=== PATIENT | female | born 1940 | race Two or more races ===

== ENCOUNTER 2017-03-21 07:48 | Emergency (ER) | payer MEDICARE, MEDICAID ==
[~2017-03-21] VITALS: Ht 152.4 cm; Wt 66.2 kg
--- NOTE | 2017-03-21 08:00 | NUR ---
AAOX3, BIB FAMILY C/O RL BACK RADIATES TO R [place] AREA, R THIGH AND ABDOMEN. DENIES N/V/D. RR IS EVEN AND UNLABORED WITH NAD NOTED. SKIN IS WARM AND DRY. AWAITING MD FOR EVAL.
[2017-03-21] MEDS ORDERED: ACETAMINOPHEN ES 500 MG TABLET ONE (08:12)
[2017-03-21] MEDS ORDERED: KETOROLAC TROMETHAMINE INJ 30 MG/ML VIAL ONE (08:12)
[2017-03-21] MEDS: KETOROLAC TROMETHAMINE INJ 60 MG/2 ML VIAL IM ONE (08:15)
[2017-03-21] MEDS: ACETAMINOPHEN ES 500 MG TABLET PO ONE (08:15)
[2017-03-21 09:13] LABS: APPEARANCE,URINE CLEAR (CLEAR); BILIRUBIN,URINE NEGATIVE (NEGATIVE); BLOOD, URINE NEGATIVE Ery/uL (NEGATIVE); COLOR,URINE YELLOW (YELLOW); KETONES,URINE NEGATIVE (NEGATIVE); LEUKOCYTE ESTERASE ,URINE NEGATIVE (NEGATIVE); NITRITE, URINE NEGATIVE (NEGATIVE); PROTEIN,URINE 1+ mg/dl (NEGATIVE); UGLUCOSE TRACE mg/dL (NEGATIVE); UROBILINOGEN,URINE 0.2 EU/dL (0.2)
--- NOTE | 2017-03-21 09:15 | NUR ---
PATIENT TRANSPORTED FOR XRAY VIA WHEELCHAIR.
[2017-03-21 09:16] LABS: RBC,URINE 0-2 /HPF (0-2)
[2017-03-21 09:17] LABS: BACTERIA,URINE Few /HPF (None Seen); MUCUS,URINE Few /LPF (None Seen); SQUAMOUS EPITHELIAL CELL,UR 0-2 /HPF (None Seen); URINE AMORPHOUS URATE Few /HPF (None Seen); WBC,URINE 0-2 /HPF (0-3)
--- NOTE | 2017-03-21 10:04 | NUR ---
Patient discharged to home in stable condition. Written and verbal after care instructions given. Patient verbalizes understanding of instruction.
[2017-03-21 10:06] VITALS: BP 142/85
== END 2017-03-21 10:30 | disposition home or self-care (01) ==
LOC: ER 07:51
DX: M54.5 Low back pain (principal); M51.16 Intervertebral disc disorders with radiculopathy, lumbar region; E11.9 Type 2 diabetes mellitus without complications; E78.00 Pure hypercholesterolemia, unspecified; I10 Essential (primary) hypertension; K21.9 Gastro-esophageal reflux disease without esophagitis
CPT/HCPCS: 72100; 81001; 87086; 96372; 99285; A4606; J1885; 81000-TC; Z7610

== ENCOUNTER 2017-06-30 10:43 | Outpatient (CLI) | payer MEDICARE, MEDICAID | END 2017-06-30 23:59 | disposition home or self-care (01) | LOC: RAD 10:43 | PROVIDERS: ATTEND Internal Medicine | DX: M79.641 Pain in right hand (principal) | CPT/HCPCS: 73130-TC ==

== ENCOUNTER 2018-04-12 14:10 | Outpatient (CLI) | payer MEDICARE, MEDICAID | END 2018-04-12 23:59 | disposition home or self-care (01) | LOC: RAD 14:10 | PROVIDERS: ATTEND Internal Medicine | DX: Z11.1 Encounter for screening for respiratory tuberculosis (principal); J98.11 Atelectasis; I70.0 Atherosclerosis of aorta; M47.815 Spondylosis without myelopathy or radiculopathy, thoracolumbar region | CPT/HCPCS: 71045-TC ==

== ENCOUNTER 2018-12-03 09:14 | Emergency (ER) | payer MEDICARE, OTHER ==
[~2018-12-03] VITALS: Ht 149.9 cm; Wt 64.4 kg
[2018-12-03] MEDS ORDERED: KETOROLAC TROMETHAMINE INJ 30 MG/ML VIAL ONE (09:51)
[2018-12-03] MEDS ORDERED: hydrALAZINE HCL IV 20 MG VIAL ONE (09:51)
[2018-12-03] MEDS ORDERED: ONDANSETRON HCL/PF 4 MG/2 ML VIAL ONE (09:52)
[2018-12-03] MEDS ORDERED: KETOROLAC TROMETHAMINE INJ 30 MG/ML VIAL IV ONE (10:00)
[2018-12-03] MEDS ORDERED: ONDANSETRON HCL/PF 4 MG/2 ML VIAL IV ONE (10:00)
[2018-12-03] MEDS ORDERED: hydrALAZINE HCL IV 20 MG VIAL IV ONE (10:00)
[2018-12-03 10:06] LABS: BASOPHILS # (AUTO) 0.1 /CMM (0.0-0.2); BASOPHILS % (AUTO) 1.3 % (0.0-2.0); EOSINOPHILS % (AUTO) 2.2 % (0.0-6.0); HEMATOCRIT 37 % (33-45); HEMOGLOBIN 11.9 g/dL (11.5-14.8); LYMPHOCYTES % (AUTO) 26.4 % (20.0-44.0); MEAN CORPUSCULAR HGB CONC 33 g/dl (31.0-36.0); MEAN CORPUSCULAR VOLUME 76 fL (82-100); MONOCYTES # (AUTO) 0.5 /CMM (0.1-1.30); MONOCYTES % (AUTO) 7.1 % (2.0-12.0); NEUTROPHILS # (AUTO) 4.7 /CMM (1.8-8.9); PLATELET COUNT (AUTO) 242 /CMM (150-450); RED BLOOD CELL COUNT(AUTO) 4.81 MIL/uL (4.0-5.2); WHITE BLOOD COUNT (AUTO) 7.4 K/uL (4.3-11.0)
[2018-12-03 10:14] LABS: CALCIUM, SERUM 9.2 mg/dL (8.5-10.1); CARBON DIOXIDE 28 mmol/L (21-32); CHLORIDE 102 mmol/L (98-107); CREATININE 0.7 mg/dL (0.6-1.3); GLUCOSE 343 mg/dL (74-106); POTASSIUM 3.4 mmol/L (3.5-5.1); SODIUM SERUM 138 mmol/L (136-145); UREA NITROGEN, BLOOD 12 mg/dL (7-18)
--- NOTE | 2018-12-03 10:15 | NUR ---
PT SINGAPOREAN SPEAKING, SON AT BEDSIDE, SINGAPOREAN INTERPRETATION. PT IN GOWN, PUT INTO MONITOR, PT MADE AWARE W PLAN OF CARE. WILL CONTINUE TO MONITOR
[2018-12-03 10:26] LABS: B-TYPE NATRIURETIC PEPTIDE 181 PG/ML (0-125)
[2018-12-03 10:46] VITALS: BP 154/83
--- NOTE | 2018-12-03 10:46 | NUR ---
IV removed. Catheter intact and site benign. Pressure and 4x4 applied to site. No bleeding noted.Patient discharged to home in stable condition. Written and verbal after care instructions given. Patient verbalizes understanding of instruction.
--- NOTE | 2018-12-03 10:47 | NUR ---
patient is stable and sent to waiting area. patient stated that she is waiting for her daughter to pick her up.
== END 2018-12-03 10:47 | disposition home or self-care (01) ==
LOC: ER 09:19
DX: R51 Headache (principal); I10 Essential (primary) hypertension; K21.9 Gastro-esophageal reflux disease without esophagitis; E11.9 Type 2 diabetes mellitus without complications; E78.00 Pure hypercholesterolemia, unspecified
CPT/HCPCS: 36415; 80048; 83880; 84484; 85025; 93005; 96374; 96375; 99284; J0360; J1885; J2405; J7030

== ENCOUNTER 2019-01-09 09:20 | Emergency (ER) | payer MEDICARE, OTHER ==
[~2019-01-09] VITALS: Ht 154.9 cm; Wt 70.3 kg
--- NOTE | 2019-01-09 09:36 | NUR ---
CAME IN FOR LOWER BACK PAIN R/T RLE. UNABLE TO GET OFF BED THIS AM. TO ER BED 11, HOOKED TO MONITOR, CHNAGED TO HOSPITAL GOWN, AWAITING MD CAO
--- NOTE | 2019-01-09 10:08 | NUR ---
DR SHEPARD AT BEDSIDE
[2019-01-09] MEDS ORDERED: MORPHINE SULFATE INJ 2 MG/ML DISP.SYRIN IV ONE (10:30)
[2019-01-09] MEDS ORDERED: MORPHINE SULFATE INJ 4 MG/ML DISP.SYRIN ONE (10:39)
[2019-01-09 10:56] LABS: BASOPHILS # (AUTO) 0.1 /CMM (0.0-0.2); BASOPHILS % (AUTO) 0.8 % (0.0-2.0); EOSINOPHILS % (AUTO) 1.1 % (0.0-6.0); HEMATOCRIT 36 % (33-45); HEMOGLOBIN 11.4 g/dL (11.5-14.8); LYMPHOCYTES # (AUTO) 1.4 /CMM (0.8-4.8); LYMPHOCYTES % (AUTO) 14.7 % (20.0-44.0); MEAN CORPUSCULAR HGB CONC 32 g/dl (31.0-36.0); MEAN CORPUSCULAR VOLUME 74 fL (82-100); MONOCYTES # (AUTO) 0.7 /CMM (0.1-1.30); NEUTROPHILS # (AUTO) 7.5 /CMM (1.8-8.9); NEUTROPHILS % (AUTO) 76.4 % (43.0-81.0); PLATELET COUNT (AUTO) 239 /CMM (150-450); RED BLOOD CELL COUNT(AUTO) 4.78 MIL/uL (4.0-5.2); WHITE BLOOD COUNT (AUTO) 9.8 K/uL (4.3-11.0)
[2019-01-09 11:05] LABS: CREATININE 0.8 mg/dL (0.6-1.3)
[2019-01-09 11:11] LABS: ALBUMIN 3.5 g/dL (3.4-5.0); BILIRUBIN,DIRECT 0.1 mg/dL (0.0-0.2); BILIRUBIN,TOTAL 0.4 mg/dL (0.2-1.0); TOTAL PROTEIN, SERUM 7.6 g/dL (6.4-8.2)
[2019-01-09] MEDS ORDERED: MORPHINE SULFATE INJ 2 MG/ML DISP.SYRIN IM ONE (11:30)
--- NOTE | 2019-01-09 11:44 | NUR ---
RECEIVED VERBAL ORDER FROM DR SHEPARD FOR KETOROLAC IM 15MG, AND DIAZEPAM 5MG PO. CARRIED OUT
[2019-01-09 11:45] LABS: APPEARANCE,URINE Clear (CLEAR); BILIRUBIN,URINE Negative (NEGATIVE); BLOOD, URINE Moderate Ery/uL (NEGATIVE); COLOR,URINE Yellow (YELLOW); KETONES,URINE Trace (NEGATIVE); LEUKOCYTE ESTERASE ,URINE Negative (NEGATIVE); NITRITE, URINE Negative (NEGATIVE); PROTEIN,URINE >=300 mg/dl (NEGATIVE); UGLUCOSE >=1000 mg/dL (NEGATIVE); UROBILINOGEN,URINE 0.2 EU/dL (0.2)
[2019-01-09] MEDS ORDERED: DIAZEPAM 5 MG TABLET ONE (11:45)
[2019-01-09] MEDS ORDERED: KETOROLAC TROMETHAMINE 15 MG/ML VIAL ONE (11:45)
[2019-01-09 11:46] LABS: BACTERIA,URINE Few /HPF (None Seen); SQUAMOUS EPITHELIAL CELL,UR Few /HPF (None Seen)
[2019-01-09] MEDS ORDERED: KETOROLAC TROMETHAMINE INJ 30 MG/ML VIAL IM ONE (12:00)
[2019-01-09] MEDS ORDERED: DIAZEPAM 10 MG TABLET PO ONE (12:00)
--- NOTE | 2019-01-09 12:32 | NUR ---
Patient discharged to home in stable condition. Written and verbal after care instructions given. Patient verbalizes understanding of instruction.
[2019-01-09 12:33] VITALS: BP 168/70
== END 2019-01-09 12:40 | disposition home or self-care (01) ==
LOC: ER 09:20
DX: S39.012A Strain of muscle, fascia and tendon of lower back, initial encounter (principal); I10 Essential (primary) hypertension; K21.9 Gastro-esophageal reflux disease without esophagitis; E11.9 Type 2 diabetes mellitus without complications; E78.00 Pure hypercholesterolemia, unspecified; M54.30 Sciatica, unspecified side; X58.XXXA Exposure to other specified factors, initial encounter; Y93.89 Activity, other specified; Y92.89 Other specified places as the place of occurrence of the external cause; Y99.8 Other external cause status
CPT/HCPCS: 36415; 72131; 73502; 80048; 80076; 81001; 83690; 85025; 96372 ×2; 99284; J1885; J2270; 81000-TC

== ENCOUNTER 2019-08-14 12:20 | Emergency (ER) | payer MEDICARE, OTHER ==
[~2019-08-14] VITALS: Ht 149.9 cm; Wt 62.6 kg
--- NOTE | 2019-08-14 12:40 | NUR ---
MELVI 860 FROM HOME C/O NON TRAUMATIC NECK PAIN FOR 2 DAYS. PATIENT A/OX4, BREATHING EVEN AND UNLABORED, NO SOB NOTED, NEEDS ATTENDED.
[2019-08-14] MEDS ORDERED: IBUPROFEN 400 MG TABLET PO ONE (13:00)
[2019-08-14] MEDS ORDERED: oxyCODONE/APAP (5/325 MG) 1 UDTAB TABLET PO ONE (13:00)
[2019-08-14] MEDS ORDERED: oxyCODONE/APAP (5/325 MG) 1 UDTAB TABLET ONE (13:12)
[2019-08-14] MEDS ORDERED: IBUPROFEN 400 MG TABLET ONE (13:12)
--- NOTE | 2019-08-14 14:04 | NUR ---
PATIENT STATED SHE FEELS BETTER.
--- NOTE | 2019-08-14 14:14 | NUR ---
Ambulatory with steady gait. No distress noted. Patient discharged to home in stable condition. Written and verbal after care instructions given. Patient verbalizes understanding of instruction. Picked up by daughter.
[2019-08-14 14:15] VITALS: BP 155/79
== END 2019-08-14 14:15 | disposition home or self-care (01) ==
LOC: ER 12:28
DX: S16.1XXA Strain of muscle, fascia and tendon at neck level, initial encounter (principal); E11.9 Type 2 diabetes mellitus without complications; I10 Essential (primary) hypertension; K21.9 Gastro-esophageal reflux disease without esophagitis; E78.00 Pure hypercholesterolemia, unspecified; X58.XXXA Exposure to other specified factors, initial encounter; Y93.89 Activity, other specified; Y92.89 Other specified places as the place of occurrence of the external cause; Y99.8 Other external cause status

== ENCOUNTER 2020-12-07 12:25 | Emergency (ER) | payer OTHER ==
[~2020-12-07] VITALS: Ht 149.9 cm; Wt 57.6 kg
--- NOTE | 2020-12-07 12:37 | NUR ---
TO ER BED 6, C/O PAIN WHEN URINATING STARTED 4DAYS AGO, URINE COLLECTED AND SENT TO LAB AT BEDSIDE
--- NOTE | 2020-12-07 12:51 | NUR ---
SALINE LOCK ESTABLISHED, BLOOD DRAWN
--- NOTE | 2020-12-07 12:51 | NUR ---
DAUGHTER CALLED ASKING FOR UPDATE. ABLE TO REACH HER [phone].
[2020-12-07 13:17] LABS: BILIRUBIN,URINE NEGATIVE (NEGATIVE); LEUKOCYTE ESTERASE ,URINE TRACE (NEGATIVE); NITRITE, URINE POSITIVE (NEGATIVE); PROTEIN,URINE 100 mg/dl (NEGATIVE); UGLUCOSE 250 MG/DL mg/dL (NEGATIVE); UROBILINOGEN,URINE 0.2 EU/dL (0.2)
[2020-12-07 13:21] LABS: COLOR,URINE STRAW (YELLOW)
--- NOTE | 2020-12-07 13:25 | NUR ---
TAKEN TO CT
[2020-12-07 13:34] LABS: BASOPHILS # (AUTO) 0.1 K/uL (0.0-0.2); BASOPHILS % (AUTO) 0.7 % (0.0-2.0); EOSINOPHILS % (AUTO) 0.6 % (0.0-6.0); HEMATOCRIT 40 % (33-45); HEMOGLOBIN 12.8 g/dL (11.5-14.8); LYMPHOCYTES # (AUTO) 1.5 K/uL (0.8-4.8); LYMPHOCYTES % (AUTO) 16.2 % (20.0-44.0); MEAN CORPUSCULAR HGB CONC 32 g/dl (31.0-36.0); MEAN CORPUSCULAR VOLUME 79 fL (82-100); MONOCYTES # (AUTO) 0.8 K/uL (0.1-1.30); MONOCYTES % (AUTO) 9.1 % (2.0-12.0); NEUTROPHILS # (AUTO) 6.7 K/uL (1.8-8.9); NEUTROPHILS % (AUTO) 73.4 % (43.0-81.0); PLATELET COUNT (AUTO) 246 K/uL (150-450); RED BLOOD CELL COUNT(AUTO) 4.98 MIL/uL (4.0-5.2); WHITE BLOOD COUNT (AUTO) 9.1 K/uL (4.3-11.0)
[2020-12-07 13:44] LABS: CALCIUM, SERUM 9.1 mg/dL (8.5-10.1); CREATININE 0.8 mg/dL (0.6-1.3); POTASSIUM 3.3 mmol/L (3.5-5.1)
[2020-12-07 13:49] LABS: ALBUMIN 3.1 g/dL (3.4-5.0); BILIRUBIN,DIRECT 0.2 mg/dL (0.0-0.2); BILIRUBIN,TOTAL 0.5 mg/dL (0.2-1.0); TOTAL PROTEIN, SERUM 7.9 g/dL (6.4-8.2)
[2020-12-07] MEDS ORDERED: CEFTRIAXONE 1GM BAG (ER ONLY) 1 GM/50 ML PIGGYBACK IV ONE (14:00)
[2020-12-07] MEDS ORDERED: IV NS 0.9% 1,000 ML BAG IV ONE (14:00)
[2020-12-07] MEDS ORDERED: INSULIN REGULAR, HUMAN 100 UNIT/ML 10 ML VIAL SQ ONE (14:00)
[2020-12-07] MEDS ORDERED: CEFTRIAXONE 1GM BAG (ER ONLY) 50 ML IV ONE (14:01)
[2020-12-07] MEDS ORDERED: INSULIN REGULAR, HUMAN 100 UNIT/ML 10 ML VIAL ONE (14:01)
[2020-12-07] MEDS ORDERED: ATOR40TA PO (14:10)
[2020-12-07] MEDS ORDERED: HYDR12.55 PO (14:10)
[2020-12-07] MEDS ORDERED: METO-357 PO (14:10)
[2020-12-07] MEDS ORDERED: OLME20TA23 PO (14:10)
[2020-12-07] MEDS ORDERED: METF-442 PO (14:10)
[2020-12-07] MEDS ORDERED: SITA100T PO (14:10)
--- NOTE | 2020-12-07 14:22 | NUR ---
Bry jean in ED - 12/07/20 at 1455 by RIGOBERTO Patient discharged to home in stable condition. Written and verbal after care instructions given. Patient verbalizes understanding of instruction.
--- NOTE | 2020-12-07 14:37 | NUR ---
Bry jean in ED - 12/07/20 at 1501 by [facility] CALLED TO KRISTA RICHMOND RESULT WAS SENT THE RESULTS.
--- NOTE | 2020-12-07 14:59 | NUR ---
CALL FROM CLAIR FROM [facility], WANT TDP DISPLAYS ANALYST TO ARRANGE FOR HOME HEALTH,THEY RECOMMEND [facility],CLAIR'S CONTACT INFO IS [phone]
--- NOTE | 2020-12-07 15:12 | NUR ---
DR STEWART INFORMED ABOUT CLAIR'S PLAN TO SET UP HOMEHEALTH,DR STEWART DID NOT AGREE WITH PLAN. CLAIR CALLED TO HAVE HIM TALK TO DR STEWART
[2020-12-07] MEDS ORDERED: IV 1/2NS 1000 ML 1,000 ML IV PRN (15:30)
[2020-12-07] MEDS ORDERED: CEFTRIAXONE 1 G in IV D5W 50 ML IV SCH (15:30)
[2020-12-07] MEDS ORDERED: INSULIN REGULAR, HUMAN 100 UNIT/ML 3 ML VIAL SQ PRN (15:30)
[2020-12-07] MEDS ORDERED: HYDROCODONE/APAP 5/325MG TABLET PO PRN (15:30)
[2020-12-07] MEDS ORDERED: MAGNESIUM HYDROXIDE 30 ML UDC PO PRN (15:30)
[2020-12-07] MEDS ORDERED: MAG HYDROX/AL HYDROX/SIMETH 30 ML UDC PO PRN (15:30)
[2020-12-07] MEDS ORDERED: ONDANSETRON HCL/PF 4 MG/2 ML VIAL IVP PRN (15:30)
[2020-12-07] MEDS ORDERED: DEXTROSE 50%-WATER 50 ML DISP.SYRIN IV PRN (15:30)
[2020-12-07] MEDS ORDERED: Z GUARD REMEDY 2 OZ OINT TP PRN (15:30)
[2020-12-07] MEDS ORDERED: ZOLPIDEM TARTRATE 5 MG TABLET PO PRN (15:30)
[2020-12-07] MEDS ORDERED: ACETAMINOPHEN 325 MG TABLET PO PRN (15:30)
--- NOTE | 2020-12-07 16:47 | NUR ---
[facility] CALLED REGARDING PT FACE SHEET TO BE FAXED. FACE SHEET WAS SENT. WAS ALSO GIVEN PHONE NUMBER FOR DR. OWENS TO SPEAK WITH DR. BABIN AT [phone]. FAX NUMBER [phone] [facility] [phone]
[2020-12-07] MEDS ORDERED: BLOOD SUGAR DIAGNOSTIC 1 EACH STRIP IN SCH (17:30)
[2020-12-07] MEDS ORDERED: METOPROLOL TARTRATE 50 MG TABLET ONE (17:40)
--- NOTE | 2020-12-07 17:43 | NUR ---
[facility] CALLED WITH INFORMATION REAGRDING BED AND TRANSPORT. BED- 539B NUMBER FOR REPORT- [phone] CLAUDIA WILL SADDLE LINING STITCHER PT AT 2000
--- NOTE | 2020-12-07 17:47 | NUR ---
FAMILY AT BEDSIDE
[2020-12-07] MEDS ORDERED: METOPROLOL TARTRATE 50 MG TABLET PO ONE (18:00)
[2020-12-07] MEDS ORDERED: HYDROCHLOROTHIAZIDE 25 MG TABLET PO ONE (18:00)
[2020-12-07] MEDS ORDERED: ATORVASTATIN 40 MG TABLET PO SCH (18:00)
[2020-12-07 18:38] VITALS: BP 160/96
--- NOTE | 2020-12-07 19:23 | NUR ---
REPORT GIVEN TO [facility] BEKAH NIETO FOR IDANIA
--- NOTE | 2020-12-07 20:11 | NUR ---
[facility] AT BEDSIDE FOR TRANSPORT TO [facility]
[2020-12-08] MEDS ORDERED: PANTOPRAZOLE 40 MG TABLET.DR PO SCH (07:30)
[2020-12-08] MEDS ORDERED: LINAGLIPTIN 5 MG TABLET PO SCH (09:00)
[2020-12-08] MEDS ORDERED: METOPROLOL SUCCINATE 50 MG TAB.SR.24H PO SCH (09:00)
[2020-12-08] MEDS ORDERED: METFORMIN 850 MG TABLET PO SCH (09:00)
[2020-12-08] MEDS ORDERED: LOSARTAN POTASSIUM 25 MG TABLET PO ONE (09:00)
== END 2020-12-07 20:20 | disposition short-term general hospital (02) ==
LOC: ER 12:36
DX: N39.0 Urinary tract infection, site not specified (principal); E11.65 Type 2 diabetes mellitus with hyperglycemia; Z79.84 Long term (current) use of oral hypoglycemic drugs; K21.9 Gastro-esophageal reflux disease without esophagitis; E78.00 Pure hypercholesterolemia, unspecified; I10 Essential (primary) hypertension; Z79.899 Other long term (current) drug therapy; Z20.822 Contact with and (suspected) exposure to COVID-19
CPT/HCPCS: 36415; 74176; 80048; 80076; 81001; 83605; 83690; 85025; 87040 ×2; 87077 ×2; 87081; 87086; 87186; 87426; 96365; 96372; 99285; J0696; J1815; J7030 ×2; C9803

== ENCOUNTER 2021-06-21 11:26 | Emergency (ER) | payer BC, OTHER ==
[~2021-06-21] VITALS: Ht 152.4 cm; Wt 56.2 kg
[~2021-06-21 11:26] MED LIST: ATOR40TA PO; HYDR12.55 PO; METF-442 PO; METO-357 PO; OLME20TA23 PO; SITA100T PO
--- NOTE | 2021-06-21 11:32 | NUR ---
BIB DAUGHTER C/O HEAD PAIN. L EYE IS BRUISED AND HEMATOMA ON L SIDE OF HER HEAD S/P FALL MONDAY, PT HIT HER HEAD ON A WALL -KO, 8/ PAIN. WARM BLNAKET PROVIDED FOR COMFORT. AWAITING MD CAO.
--- NOTE | 2021-06-21 11:35 | NUR ---
DR STEWART AT BEDSIDE FOR EVAL
--- NOTE | 2021-06-21 11:57 | NUR ---
CALLED RADIO. TECH. FOR CT HEAD
[2021-06-21] MEDS ORDERED: ACETAMINOPHEN ES 500 MG TABLET ONE (12:49)
--- NOTE | 2021-06-21 12:52 | NUR ---
Patient discharged to home in stable condition. Written and verbal after care instructions given. Patient verbalizes understanding of instruction.
[2021-06-21 12:53] VITALS: BP 155/73
[2021-06-21] MEDS ORDERED: ACETAMINOPHEN ES 500 MG TABLET PO ONE (13:00)
== END 2021-06-21 12:53 | disposition home or self-care (01) ==
LOC: ER 11:26
DX: S00.12XA Contusion of left eyelid and periocular area, initial encounter (principal); S09.90XA Unspecified injury of head, initial encounter; I10 Essential (primary) hypertension; K21.9 Gastro-esophageal reflux disease without esophagitis; E11.9 Type 2 diabetes mellitus without complications; E78.00 Pure hypercholesterolemia, unspecified; Z79.899 Other long term (current) drug therapy; Z79.84 Long term (current) use of oral hypoglycemic drugs; W01.198A Fall on same level from slipping, tripping and stumbling with subsequent striking against other object, initial encounter; Y93.89 Activity, other specified; Y92.89 Other specified places as the place of occurrence of the external cause; Y99.8 Other external cause status
CPT/HCPCS: 70450-TC

== ENCOUNTER 2021-09-20 09:34 | Inpatient (IN) | payer BC, OTHER ==
[~2021-09-20] VITALS: Ht 154.9 cm; Wt 57.6 kg
--- NOTE | 2021-09-20 09:40 | NUR ---
IV LINE ESTABLISHED, BLOOD DRAWN AND SENT TO LAB.
--- NOTE | 2021-09-20 09:43 | NUR ---
PT TAKEN TO CT WITH ACLS PROTOCOLS IN PLACE
[2021-09-20] MEDS ORDERED: IOHEXOL-350 100 ML VIAL IV ONE (09:47)
[2021-09-20] MEDS ORDERED: IV NS 0.9% 250 ML IV ONE (09:47)
[2021-09-20] MEDS ORDERED: CT SWABBABLE VALVE TRANS SET 1 EA INFUS.SET MC ONE (09:47)
[2021-09-20 09:51] LABS: BASOPHILS # (AUTO) 0.1 K/uL (0.0-0.2); BASOPHILS % (AUTO) 0.8 % (0.0-2.0); EOSINOPHILS % (AUTO) 0.7 % (0.0-6.0); HEMATOCRIT 40 % (33-45); HEMOGLOBIN 12.9 g/dL (11.5-14.8); LYMPHOCYTES # (AUTO) 1.3 K/uL (0.8-4.8); LYMPHOCYTES % (AUTO) 14.4 % (20.0-44.0); MEAN CORPUSCULAR HGB CONC 33 g/dl (31.0-36.0); MEAN CORPUSCULAR VOLUME 80 fL (82-100); MONOCYTES # (AUTO) 0.4 K/uL (0.1-1.30); MONOCYTES % (AUTO) 4.6 % (2.0-12.0); NEUTROPHILS # (AUTO) 7.2 K/uL (1.8-8.9); NEUTROPHILS % (AUTO) 79.5 % (43.0-81.0); PLATELET COUNT (AUTO) 246 K/uL (150-450); RED BLOOD CELL COUNT(AUTO) 4.96 MIL/uL (4.0-5.2)
[2021-09-20 10:11] LABS: ALANINE AMINOTRANSFERASE 12 U/L (12-78); ALBUMIN 3.3 g/dL (3.4-5.0); ALKALINE PHOSPHATASE 117 U/L (46-116); ASPARTATE AMINOTRANSFERASE 11 U/L (15-37); BILIRUBIN,DIRECT 0.1 mg/dL (0.0-0.2); BILIRUBIN,TOTAL 0.3 mg/dL (0.2-1.0); CALCIUM, SERUM 8.9 mg/dL (8.5-10.1); CARBON DIOXIDE 30 mmol/L (21-32); CHLORIDE 97 mmol/L (98-107); CREATININE 0.8 mg/dL (0.6-1.3); POTASSIUM 4.2 mmol/L (3.5-5.1); SODIUM SERUM 132 mmol/L (136-145); TOTAL PROTEIN, SERUM 7.9 g/dL (6.4-8.2); UREA NITROGEN, BLOOD 19 mg/dL (7-18)
[2021-09-20 10:16] LABS: GLUCOSE 447 mg/dL (74-106)
[2021-09-20] MEDS ORDERED: ASPIRIN 81 MG TAB.CHEW PO ONE (11:30)
[2021-09-20] MEDS ORDERED: CLOPIDOGREL BISULFATE 300 MG TABLET PO ONE (11:30)
[2021-09-20] MEDS ORDERED: AMLO5TAB4 PO (11:48)
[2021-09-20] MEDS ORDERED: DICL100G26 TP (11:48)
[2021-09-20] MEDS ORDERED: ICOS1CAP PO (11:48)
[2021-09-20] MEDS ORDERED: TRAZ-182 PO (11:48)
[2021-09-20] MEDS ORDERED: MYRBETRIQ PO (11:48)
[2021-09-20] MEDS ORDERED: CHLO25TA2 PO (11:48)
[2021-09-20] MEDS ORDERED: EMPA10TA PO (11:48)
[2021-09-20] MEDS ORDERED: CLOPIDOGREL BISULFATE 75 MG TABLET ONE (12:04)
[2021-09-20] MEDS ORDERED: ASPIRIN 81 MG TAB.CHEW ONE (12:05)
[2021-09-20] MEDS ORDERED: INSU300I SQ (12:10)
[2021-09-20] MEDS ORDERED: LIRA0.6P2 SQ (12:10)
--- NOTE | 2021-09-20 12:13 | NUR ---
FAMILY AT BEDSIDE W/ PATIENT. PT ABLE TO TAKE PO MEDS.
--- NOTE | 2021-09-20 12:55 | NUR ---
COVID SWAB SPECIMEN OBTAINED AND SENT TO LAB
--- NOTE | 2021-09-20 14:51 | NUR ---
WAS NOTIFIED BY ADMITTING DEPARTMENT THAT [facility] WILL BE ACCEPTING THE PT. AWAITING A CALL BACK WITH AN UPDATE ON PT BED AND TRANSFER INFO.
--- NOTE | 2021-09-20 19:24 | NUR ---
RECEIVED PATIENT AWAKE BUT WITH SLURRED SPEECH AND RIGHT SIDED WEAKNESS. PATIENT HAS PERIPHERAL LINE ON LEFT AC G18. PATIENT IS CONVERSANT AND ABLE TO MAKE NEEDS KNOWN. VITALS CHECKED AND BEING MONITORED.
--- NOTE | 2021-09-20 21:55 | NUR ---
BOB, GRAND DAUGHTER,
--- NOTE | 2021-09-20 21:59 | NUR ---
GRAND DAUGHTERS BOB , SANJANA .
--- NOTE | 2021-09-20 22:21 | NUR ---
SPOKE TO ZAMZAM EDMONDSON GEM CUTTER. STILL WAITING FOR A BED AT [facility] AND DOES NOT WANNA GIVE AN AUTH TO ADMIT THE PATIENT HERE.
--- NOTE | 2021-09-20 22:38 | NUR ---
FAMILY MADE AWARE ABOUT THE PLAN TO ADMIT PT TO [facility]
--- NOTE | 2021-09-20 22:41 | NUR ---
PT AUTHORIZED TO STAY BY . AUTH # [id number]
--- NOTE | 2021-09-20 23:44 | NUR ---
MRSA SWAB COLLECTED AND SENT TO LAB. PATIENT'S BELONGINGS LIST DONE.
--- NOTE | 2021-09-20 23:55 | NUR ---
REPORT GIVEN TO EMILIA STEPHENSON.
--- NOTE | 2021-09-21 01:00 | NUR ---
ROUNDHOUSE FIRER/FIREMANCHILDREN'S CHOIR DIRECTOR NOTES PATIENT ARRIVED ONTO UNIT VIA STRETCHER, ACCOMPANIED BY 2 ER STAFF PER ACLS PROTOCOL; PATIENT NOTED TO HAVE RIGHT SIDED WEAKNESS, AND LEFT SIDED FACIAL DROOP; PATIENT HAS MILD SLURRED SPEECH; A/OX2-3, SAO TOMEAN SPEAKING; UNDERSTANDS MINIMAL KYRGYZ; NEEDS SUPERVISOR HAND SILVERING; PATIENT TOLERATING ROOM AIR WELL, [id number]%, NO SOB NOTED; BREATHING EVEN AND UNLABORED; SKIN ASSESSMENT DONE, SKIN INTACT, NO WOUNDS NOTED, WITNESSED WITH SENIOR FIREWALL ENGINEER AT BEDSIDE; TELE MONITOR READS SINUS RHYTHM 87BPM; VSS; LEFT AC #18 S/L FLUSHING WELL, NO SIGNS OF REDNESS OR INFILTRATION NOTED; BELONGINGS CHECKED WITH SENIOR FIREWALL ENGINEER AT BEDSIDE; PATIENT UNABLE TO RECALL MEDICAL HISTORY, MED HX OBTAINED FROM PREVIOUS RECORD AND FROM FAMILY, REPORTED FROM ER STAFF; AWAITING MD ORDERS; PATIENT ORIENTED TO UNIT AND TO STAFF; SAFETY PRECAUTIONS IMPLEMENTED; BED LOCKED IN LOW POSITION; SIDE RAILSX2; CALL LIGHT WITHIN REACH; WILL CONT PLAN OF CARE
--- NOTE | 2021-09-21 01:03 | NUR ---
BROUGHT PATIENT TO RM 114-T
[2021-09-21] MEDS ORDERED: ACETAMINOPHEN 650 MG/20.3 ML UDC NG PRN (01:30)
--- NOTE | 2021-09-21 01:30 | NUR ---
BALANCE WHEEL HAND FILER NOTE PATIENT ACCU CHECK UPON ADMISSION 354MG/DL, CHARGE NURSE MADE AWARE; NO COVERAGE GIVEN; PER CHARGE NURSE NO COVERAGE GIVEN IN ER AND RESULTS ARE TRENDING DOWN; WILL RE-ASSESS PER STROKE PROTOCOL; Q6HR Addendum: 09/21/21 at 0531 by OLMAN PÉREZ RN PER PROTOCOL ADMINISTER INSULIN COVERAGE, AWAITING SLIDING SCALE COVERAGE TO BE VERIFIED BY [facility]; COVERAGE WILL BE GIVEN; WITNESSED BY EMILIA MICHAEL;
[2021-09-21 01:44] VITALS: BP 168/93
--- NOTE | 2021-09-21 03:41 | NUR ---
RN NOTE MRI BRAIN WITHOUT CONTRAST CHECK LIST: ATTEMPTED TO COMPLETE, PATIENT IS CURRENTLY POOR HISTORIAN; ATTEMPTED TO CALL BOTH GRAND DAUGHTERS, NO ANSWER; MESSAGE WAS LEFT TO CALL BACK SOON POSSIBLE; WILL ENDORSE TO AM SHIFT; CHARGE NURSE MADE AWARE;
[2021-09-21] MEDS: INSULIN REGULAR, HUMAN 100 UNIT/ML 3 ML VIAL SQ PRN ×3 (03:57→23:55)
[2021-09-21 05:15] VITALS: BP 171/89
--- NOTE | 2021-09-21 05:17 | NUR ---
BABY FORMULA MIXER NOTE 0230 MODERATE SLIDING SCALE NOT YET VERIFIED BY PHARMACY; AWAITING PHARMACY TO VERIFY; CHARGE NURSE AWARE;
[2021-09-21] MEDS: BLOOD SUGAR DIAGNOSTIC 1 EACH STRIP IN SCH ×4 (05:37→23:53)
[2021-09-21] MEDS ORDERED: BLOOD SUGAR DIAGNOSTIC 1 EACH STRIP IN SCH (06:00)
[2021-09-21 06:29] LABS: BASOPHILS % (AUTO) 0.4 % (0.0-2.0); HEMATOCRIT 42 % (33-45); HEMOGLOBIN 13.7 g/dL (11.5-14.8); LYMPHOCYTES # (AUTO) 1.4 K/uL (0.8-4.8); LYMPHOCYTES % (AUTO) 11.4 % (20.0-44.0); MEAN CORPUSCULAR HGB CONC 32 g/dl (31.0-36.0); MEAN CORPUSCULAR VOLUME 79 fL (82-100); MONOCYTES # (AUTO) 0.6 K/uL (0.1-1.30); MONOCYTES % (AUTO) 5.2 % (2.0-12.0); NEUTROPHILS # (AUTO) 10.1 K/uL (1.8-8.9); PLATELET COUNT (AUTO) 261 K/uL (150-450); RED BLOOD CELL COUNT(AUTO) 5.34 MIL/uL (4.0-5.2); WHITE BLOOD COUNT (AUTO) 12.2 K/uL (4.3-11.0)
--- NOTE | 2021-09-21 06:43 | NUR ---
RESTUARANT CREW WORKER CLOSING NOTES PATIENT RESTING IN BED COMFORTABLY; PATIENT HAS RIGHT SIDED WEAKNESS AND LEFT SIDED FACIAL DROOP NOTED TO BE GETTING BETTER; PATIENT HAS MILD SLURRED SPEECH GETTING BETTER WELL, STARTING TO GET A LITTLE CLEAR; A/OX2-3, WOLOF SPEAKING; SOMETIMES FORGETFUL, UNRELIABLE HISTORIAN AT THIS TIME; KEEPS TRYING TO GET OUT OF BED REGARDLESS OF HOW MANY TIMES PATIENT IS EDUCATED AND RE-EDUCATED; UNDERSTANDS MINIMAL YI; NEEDS COFFEE SHOP AIDE; PATIENT TOLERATING ROOM AIR WELL, SATTING 96%, NO SOB NOTED; BREATHING EVEN AND UNLABORED; TELE MONITOR READS SINUS RHYTHM 89BPM-TO SINUS TACHY 105BPM; LEFT AC #18 S/L FLUSHING WELL, NO SIGNS OF REDNESS OR INFILTRATION NOTED; ALL NEEDS RENDERED; SAFETY PRECAUTIONS IMPLEMENTED; BED LOCKED IN LOW POSITION; SIDE RAILSX2; CALL LIGHT WITHIN REACH; WILL ENDORSE IDANIA TO ONCOMING SHIFT
--- NOTE | 2021-09-21 06:54 | NUR ---
MRI APPROVED,TECH NOTIFIED
[2021-09-21 07:03] LABS: CALCIUM, SERUM 9.7 mg/dL (8.5-10.1); CREATININE 0.9 mg/dL (0.6-1.3); POTASSIUM 3.2 mmol/L (3.5-5.1); THYROID STIMULATING HORMONE 0.948 uIU/mL (0.358-3.74)
--- NOTE | 2021-09-21 07:30 | NUR ---
AGENCY CASHIER OPENING NOTES: RECEIVED PATIENT IN BED AWAKE, ALERT AND ORIENTED X 2 SLURRED SPEECH NOTED. ABLE TO VERBALIZED NEEDS. PATIENT UKRAINIAN SPEAKING. NO SOB OR CARDIAC DISTRESS NOTED, AFEBRILE AND ON ROOM AIR. ON RELAY TELEGRAPHER CURRENT READING OF SINUS RHYTHM 78BPM. IV ACCESS ON LAC G#18 PATENT AND INTACT SALINE LOCKED. SAFETY PRECAUTIONS MAINTAINED: BED LOCKED AND IN LOWEST POSITION, SIDE RAILS UP X2, CALL LIGHT IN EASY REACH FOR HELP.WILL MONITOR FOR ANY SIGNIFICANT CAHNGES.
[2021-09-21] MEDS ORDERED: TRAZODONE 50 MG TABLET PO PRN (08:00)
[2021-09-21] MEDS: ENOXAPARIN SODIUM 40 MG/0.4 ML DISP.SYRIN SQ SCH (08:56)
[2021-09-21] MEDS: ASPIRIN 81 MG TAB.CHEW PO SCH (08:58)
[2021-09-21] MEDS: METOPROLOL SUCCINATE 50 MG TAB.SR.24H PO SCH (08:59)
[2021-09-21] MEDS: CLOPIDOGREL BISULFATE 75 MG TABLET PO SCH (08:59)
[2021-09-21] MEDS: LINAGLIPTIN 5 MG TABLET PO SCH (08:59)
[2021-09-21 09:00] VITALS: BP 179/77
[2021-09-21] MEDS: LOSARTAN POTASSIUM 50 MG TABLET PO SCH (09:00)
[2021-09-21] MEDS ORDERED: POTASSIUM CHLORIDE 20 MEQ TAB.PRT.SR PO ONE (09:00)
[2021-09-21] MEDS ORDERED: Medication Not On Formulary EA (Icosapent Ethyl (Vascepa) 1 GM) PO SCH (09:00)
[2021-09-21] MEDS ORDERED: Medication Not On Formulary EA ([Myrbetriq] 25 MG) PO SCH (09:00)
[2021-09-21] MEDS ORDERED: INSULIN GLARGINE, 100 UNIT/ML CARTRIDGE SQ SCH (09:00)
[2021-09-21] MEDS: INSULIN GLARGINE, 100 UNIT/ML CARTRIDGE SQ SCH ×2 (10:51→16:53)
[2021-09-21 12:04] LABS: BILIRUBIN,URINE NEGATIVE (NEGATIVE); COLOR,URINE YELLOW (YELLOW); LEUKOCYTE ESTERASE ,URINE NEGATIVE (NEGATIVE); NITRITE, URINE NEGATIVE (NEGATIVE); PROTEIN,URINE >=300 mg/dl (NEGATIVE); UGLUCOSE >=1000 mg/dL (NEGATIVE); UROBILINOGEN,URINE 0.2 EU/dL (0.2)
[2021-09-21 12:55] LABS: RBC,URINE 0-2 /HPF (0-2)
[2021-09-21 12:56] LABS: BACTERIA,URINE 1+ /HPF (None Seen); YEAST,URINE Few /HPF (None Seen)
[2021-09-21 13:00] VITALS: BP 144/72
[2021-09-21 17:00] VITALS: BP 149/73
[2021-09-21] MEDS: ATORVASTATIN 40 MG TABLET PO SCH (17:14)
[2021-09-21] MEDS ORDERED: ATORVASTATIN 40 MG TABLET PO SCH (18:00)
--- NOTE | 2021-09-21 18:48 | NUR ---
SUBSORTER CLOSING NOTES: PATIENT IN BED AWAKE, ALERT AND ORIENTED X 3 SLURRED SPEECH NOTED. FAMILY AT BEDSIDE.ABLE TO VERBALIZED NEEDS. PATIENT ALBANIAN SPEAKING. NO SOB OR CARDIAC DISTRESS NOTED, AFEBRILE AND ON ROOM AIR. ON AIR PUMPER CURRENT READING OF SINUS RHYTHM 70BPM. IV ACCESS ON LAC G#18 PATENT AND INTACT SALINE LOCKED. SAFETY PRECAUTIONS MAINTAINED: BED LOCKED AND IN LOWEST POSITION, SIDE RAILS UP X2, CALL LIGHT IN EASY REACH FOR HELP.WILL MONITOR FOR ANY SIGNIFICANT CHANGES. ENDORSED TO MECHANICAL MAINTENANCE NURSE FOR IDANIA.
--- NOTE | 2021-09-21 19:30 | NUR ---
JAVA INTEGRATION DEVELOPER OPENING NOTES: RECEIVED PATIENT IN BED AWAKE, ALERT AND ORIENTED X 2, SLURRED SPEECH NOTED. ABLE TO VERBALIZE NEEDS. PATIENT IS LUXEMBOURGISH SPEAKING. ON ROOM AIR, TOLERATING WELL. NO S/SX OF ACUTE DISTRESS NOTED AT THIS TIME. ON TELE MONITOR SHOWING SINUS RHYTHM 83 BPM. IV ACCESS IS NOTED ON LAC #18g, PATENT AND INTACT, SL. ALL SAFETY PRECAUTIONS IN PLACE: BED LOCKED AND IN LOWEST POSITION, SIDE RAILS UP X2, CALL LIGHT IN EASY REACH FOR HELP.WILL MONITOR FOR ANY SIGNIFICANT CHANGES.
[2021-09-21 21:00] VITALS: BP 168/59
--- NOTE | 2021-09-21 22:10 | NUR ---
RN NOTE PT IS SLEEPING SOUNDLY, NO DISTRESS NOTED. WILL CONTINUE TO MONITOR.
--- NOTE | 2021-09-22 00:42 | NUR ---
RN NOTE INSULIN GIVEN PER SLIDING SCALE. PT IS AWAKE, NO C/O OF PAIN OR DISCOMFORT. TURNED AND REPOSITIONED.
[2021-09-22 01:00] VITALS: BP 189/76
--- NOTE | 2021-09-22 01:07 | NUR ---
RN NOTE PT HAS ELEVATED BP: 189/76. INFORMED DR. SOLIS ABOUT PT'S BP AND SAID TO KEEP SBP> 180 DUE TO PT HAVING STROKE. NOTED AND DOCUMENTED.
[2021-09-22 05:00] VITALS: BP 164/79
[2021-09-22] MEDS: BLOOD SUGAR DIAGNOSTIC 1 EACH STRIP IN SCH ×4 (05:31→23:14)
[2021-09-22] MEDS: INSULIN REGULAR, HUMAN 100 UNIT/ML 3 ML VIAL SQ PRN ×3 (05:32→23:17)
--- NOTE | 2021-09-22 05:33 | NUR ---
RN NOTE PT SLEPT MOST OF THE TIME. NO SIGNIFICANT CHANGE/S WAS NOTED. NO COMPLAINS OF PAIN, NO SOB. ROOM AIR TOLERATING WELL. O2 SAT IS 96%, SR ON MONITOR. ALL NEEDS ATTENDED TO. DUE MEDS GIVEN. ALL SAFETY MEASURES IMPLEMENTED. BED ALARM ON. CALL LIGHT WITHIN REACH. WILL ENDORSE TO AM SHIFT NURSE FOR IDANIA.
[2021-09-22 07:13] LABS: BASOPHILS # (AUTO) 0.1 K/uL (0.0-0.2); BASOPHILS % (AUTO) 0.5 % (0.0-2.0); EOSINOPHILS % (AUTO) 0.3 % (0.0-6.0); HEMATOCRIT 39 % (33-45); HEMOGLOBIN 12.7 g/dL (11.5-14.8); LYMPHOCYTES # (AUTO) 1.6 K/uL (0.8-4.8); LYMPHOCYTES % (AUTO) 12.8 % (20.0-44.0); MEAN CORPUSCULAR HGB CONC 33 g/dl (31.0-36.0); MEAN CORPUSCULAR VOLUME 78 fL (82-100); MONOCYTES # (AUTO) 0.9 K/uL (0.1-1.30); MONOCYTES % (AUTO) 7.3 % (2.0-12.0); NEUTROPHILS # (AUTO) 9.9 K/uL (1.8-8.9); NEUTROPHILS % (AUTO) 79.1 % (43.0-81.0); PLATELET COUNT (AUTO) 244 K/uL (150-450); RED BLOOD CELL COUNT(AUTO) 4.94 MIL/uL (4.0-5.2); WHITE BLOOD COUNT (AUTO) 12.6 K/uL (4.3-11.0)
[2021-09-22 07:16] LABS: CALCIUM, SERUM 9.4 mg/dL (8.5-10.1); CARBON DIOXIDE 27 mmol/L (21-32); CHLORIDE 100 mmol/L (98-107); CREATININE 0.6 mg/dL (0.6-1.3); GLUCOSE 118 mg/dL (74-106); MAGNESIUM 1.7 mg/dL (1.8-2.4); POTASSIUM 3.1 mmol/L (3.5-5.1); SODIUM SERUM 136 mmol/L (136-145); UREA NITROGEN, BLOOD 19 mg/dL (7-18)
--- NOTE | 2021-09-22 07:46 | NUR ---
RN OPENING NOTES RECEIVED PATIENT FROM NIGHTSHIFT RN. PATIENT CURRENTLY IN BED ASLEEP BREATHING EVENLY AND UNLABORED ON ROOM AIR. ATTACHED TO EXTERNAL MONITOR READING NORMAL SINUS RHYTHM IN THE 70S. IV ACCESS NOTED ON LEFT ANTECUBITAL 18 GAUGE PATENT AND FLUSHING EASILY WITHOUT RESISTANCE. SAFETY MEASURES IN PLACE, CALL LIGHT WITHIN REACH, BED IN LOWEST POSITION, SIDE RAILS UP, CALL LIGHT WITHIN REACH. WILL CONTINUE PLAN OF CARE AND ANTICIPATE NEEDS.
[2021-09-22] MEDS ORDERED: POTASSIUM CHLORIDE 20 MEQ TAB.PRT.SR PO ONE (08:00)
[2021-09-22] MEDS: ASPIRIN 81 MG TAB.CHEW PO SCH (08:13)
[2021-09-22] MEDS: LINAGLIPTIN 5 MG TABLET PO SCH (08:13)
[2021-09-22] MEDS: Magnesium 1GM/D5W 100ML PREMIX 100 ML IV SCH ×2 (08:13→09:57)
[2021-09-22] MEDS: CLOPIDOGREL BISULFATE 75 MG TABLET PO SCH (08:15)
[2021-09-22] MEDS: ENOXAPARIN SODIUM 40 MG/0.4 ML DISP.SYRIN SQ SCH (08:17)
[2021-09-22] MEDS: METOPROLOL SUCCINATE 50 MG TAB.SR.24H PO SCH (08:36)
[2021-09-22] MEDS: LOSARTAN POTASSIUM 50 MG TABLET PO SCH (08:37)
[2021-09-22 09:00] VITALS: BP 186/67
[2021-09-22] MEDS: CEFTRIAXONE 1 G in IV D5W 50 ML IV SCH (09:57)
[2021-09-22] MEDS: INSULIN GLARGINE, 100 UNIT/ML CARTRIDGE SQ SCH ×2 (09:59→17:17)
[2021-09-22 13:00] VITALS: BP 176/67
[2021-09-22 17:00] VITALS: BP 158/59
[2021-09-22] MEDS: ATORVASTATIN 40 MG TABLET PO SCH (17:17)
--- NOTE | 2021-09-22 18:48 | NUR ---
RN CLOSING NOTES PATIENT CURRENTLY IN BED ALERT AND ORIENTED TIMES 4, BREATHING EVENLY AND UNLABORED ON ROOM AIR. ATTACHED TO EXTERNAL MONITOR READING NORMAL SINUS RHYTHM IN THE 70S. IV ACCESS NOTED ON LEFT ANTECUBITAL 18 GAUGE PATENT AND FLUSHING EASILY WITHOUT RESISTANCE. SAFETY MEASURES IN PLACE, CALL LIGHT WITHIN REACH, BED IN LOWEST POSITION, SIDE RAILS UP, CALL LIGHT WITHIN REACH. FAMILY MEMBERS AT THE BEDSIDE. WILL ENDORSE TO NIGHTSHIFT RN FOR CONTINUATION OF CARE.
--- NOTE | 2021-09-22 19:30 | NUR ---
CEMENT FINISHER APPRENTICE OPENING NOTE RECEIVED PATIENT IN BED, AWAKE. FAMILY ON BEDSIDE. CURRENTLY ON ROOM AIR, TOLERATING WELL. NO S/SX OF ACUTE DISTRESS NOTED AT THIS TIME. BREATHING IS EVEN AND UNLABORED ATTACHED TO EXTERNAL MONITOR READING NORMAL SINUS RHYTHM WITH HR IN THE 70S. IV ACCESS NOTED ON LEFT ANTECUBITAL #18G, PATENT AND FLUSHING EASILY WITHOUT RESISTANCE. ALL SAFETY MEASURES IN PLACE: CALL LIGHT WITHIN REACH, BED IN LOWEST POSITION, BED LOCKED, SIDE RAILS UP. WILL CONTINUE PLAN OF CARE AND ANTICIPATE NEEDS.
[2021-09-22 21:00] VITALS: BP 177/64
--- NOTE | 2021-09-22 23:00 | NUR ---
RN NOTE PT SLEEPING SOUNDLY IN BED. NO APPARENT DISTRESS NOTED. WILL CONTINUE TO MONITOR PT.
[2021-09-23] VITALS (8 sets, daily range): BP systolic 127–189; BP diastolic 62–74
[2021-09-23] MEDS: BLOOD SUGAR DIAGNOSTIC 1 EACH STRIP IN SCH ×3 (05:37→17:07)
[2021-09-23] MEDS: INSULIN REGULAR, HUMAN 100 UNIT/ML 3 ML VIAL SQ PRN ×3 (05:38→17:04)
--- NOTE | 2021-09-23 05:58 | NUR ---
CHEMICAL UNIT OPERATOR CLOSING NOTE PT REMAINED STABLE THROUGHOUT THE NIGHT. ON ROOM AIR, TOLERATING WELL. NO SIGNS OF ACUTE DISTRESS NOTED. O2 SAT IS 98%. TELE MONITOR SHOWS SR. DUE MEDS GIVEN. AM/PM CARE DONE. ALL SAFETY MEASURES IN PLACE: BED IN LOW POSITION, LOCKED. SIDE RAILS UP X 2. CALL LIGHT WITHIN REACH. WILL ENDORSE TO AM SHIFT NURSE FOR IDANIA.
[2021-09-23 06:41] LABS: CREATININE 0.6 mg/dL (0.6-1.3); POTASSIUM 3.6 mmol/L (3.5-5.1)
--- NOTE | 2021-09-23 07:45 | NUR ---
BIN CLEANER NOTE PATIENT LAYING IN BE A&OX2-3. PATIENT ON ROOM AIR NOT SIGNS OF RESPIRATORY DISTRESS. PATIENT IS ON MONITOR. SR 74. BED BOUND RIGHT SIDED WEAKNESS. DIET CCHO/GROUND/MOIST. IV LEFT AC 18G INFILTRATED, RED, SWOLLEN, PATIENT REPORTS PAIN AND TENDERNESS. ICE PACK APPLIED WILL INSERT NEW LINE. SAFETY FALL PRECAUTIONS IN PLACE, BED IN THE LOWEST POSITION, BED LOCK ON, SIDE RAILS UP, CALL LIGHT WITHIN REACH. WILL CONTINUE TO MONITOR.
[2021-09-23 08:05] LABS: CALCIUM, SERUM 9.5 mg/dL (8.5-10.1)
[2021-09-23] MEDS: ASPIRIN 81 MG TAB.CHEW PO SCH (08:28)
[2021-09-23] MEDS: METOPROLOL SUCCINATE 50 MG TAB.SR.24H PO SCH (08:28)
[2021-09-23] MEDS: LOSARTAN POTASSIUM 50 MG TABLET PO SCH (08:29)
[2021-09-23] MEDS: CEFTRIAXONE 1 G in IV D5W 50 ML IV SCH (08:29)
[2021-09-23] MEDS: LINAGLIPTIN 5 MG TABLET PO SCH (08:29)
[2021-09-23] MEDS: CLOPIDOGREL BISULFATE 75 MG TABLET PO SCH (08:29)
[2021-09-23] MEDS: ENOXAPARIN SODIUM 40 MG/0.4 ML DISP.SYRIN SQ SCH (08:35)
--- NOTE | 2021-09-23 09:30 | NUR ---
telemetry nurse not dr quezada at bedside updated patient condition and aware bp in am ,aware that seen st and pt eval done
[2021-09-23] MEDS: INSULIN GLARGINE, 100 UNIT/ML CARTRIDGE SQ SCH ×2 (10:01→17:23)
--- NOTE | 2021-09-23 10:30 | NUR ---
telephoto installer note dr quezada aware r juan f vogt stated kenneth is coming to see her Addendum: 09/23/21 at 1032 by SUSAN GUPTA RN ot at bedside aware that dr quezada wants sling for rt arm for patient stated that will check it out
--- NOTE | 2021-09-23 12:31 | NUR ---
UNIT CONTROLLER NOTE PT AT BEDSIDE, OT AT BEDSIDE RT SLING APPLIED WILL F\U
--- NOTE | 2021-09-23 13:05 | NUR ---
CARBON BLOCKS PRESS OPERATOR NOTE AMBULATED WITH PT WITH WALKER WITH MOD ASSISTANCE
--- NOTE | 2021-09-23 13:30 | NUR ---
GRINDER OPERATOR EXTERNAL TOOL NOTE PATIENT IS VERY HARD STICK TO INSERT IV HL , PER DR IRMA NEVAREZ TO INSERT MID LINE , NURSING STEAMER OPERATOR NOTIFIED
--- NOTE | 2021-09-23 14:32 | NUR ---
STANISLAV AMAYA AT BEDSIDE PLACED A SPLINT ON THE RIGHT ARM. STAT CT OF RIGHT EXTREMITY ORDERED W/O CONTRAST. MIDLINE PLACE ON LEFT UPPER ARM. WILL CONTINUE TO MONITOR THE PATIENT. Addendum: 09/23/21 at 1502 by SUSAN GUPTA RN CT RT ARM DONE ORDERED WILL F\U
--- NOTE | 2021-09-23 15:32 | NUR ---
telecasting technician note patient c\o rt arm pain stated that Tylenol,not helping ,called to dr quezada with order [place] po q4 hour order carried out will f\u
[2021-09-23] MEDS: HYDROCODONE/APAP 5/325MG TABLET PO PRN ×2 (16:18→23:55)
--- NOTE | 2021-09-23 16:20 | NUR ---
telegraphic service dispatcher note norco po given for rt arm pain bp 135/78 saturation 96% , also dvt pumps both legs placed will cont to monitor closely
[2021-09-23] MEDS: ATORVASTATIN 40 MG TABLET PO SCH (17:06)
--- NOTE | 2021-09-23 18:21 | NUR ---
DINKEY OPERATOR SLAG NOTE RESTING COMFORTABLY IN BED , FAMILY AT BEDSIDE, CALL LIGHT WITHIN REACH, ALL NEEDS ATTENDED\, ON RA, NO SOB NOTED AT THIS TIME,CT AWAITING TO BE DONE , SAFETY FALL PRECAUTION IN PLACE MEASURE,PAIN IS SUBSIDED RT ARM AFTER NORCO GIVEN,, RT ARM WITH SPLINT IN PLACE , ABLE TO MOVE FINGERS WELL AND FEEL WELL, NO TINGLING NOTED, SKIN WARM TO TOUCH, WILL CONT TO MONITOR
--- NOTE | 2021-09-23 20:18 | NUR ---
SERVICE STATION HELPER OPENING NOTES: RECEIVED PATIENT AWAKE IN BED ACCOMPANIED BY FAMILY, BED IN LOW POSITION CALL LIGHTS WITHIN REACH, A/OX2-3 CANADIAN SPEAKING, LAC#18 SL, AND EVETTE OLIVO. SPLINT AT RT ARM WAS PLACED DUE TO FX TO BE HANDLED GENTLY, , AMBULATE WITH PT DONE TODAY, , ON TELE [id number], PATIENT KEPT CLEAN AND DRY ALL NEEDS MET WILL CONTINUE TO MONITOR.
[2021-09-24] VITALS (11 sets, daily range): BP systolic 124–177; BP diastolic 62–117
--- NOTE | 2021-09-24 00:30 | NUR ---
RN NOTES: BLOOD [id number] NO INSULIN GIVEN/ OUT OF PARAMETER
[2021-09-24] MEDS: BLOOD SUGAR DIAGNOSTIC 1 EACH STRIP IN SCH ×5 (06:00→23:22)
--- NOTE | 2021-09-24 06:18 | NUR ---
RN NOTES: BLOOD [id number]- NO INSULIN GIVEN/ OUT OF PARAMETER
--- NOTE | 2021-09-24 06:54 | NUR ---
FIRE BOSS CLOSING NOTES: PATIENT SLEEP IN BED COMFORTABLY, AROUSABLE TO VERBAL STIMULI, BED IN LOW POSITION, CALL LIGHTS WITHIN REACH, PATIENT IS A/O X 3- ABLE TO MAKE NEEDS KNOWN, ON ROOM AIR SATURATING WELL, ON TELE [id number], PATIENT KEPT CLEAN AND DRY ALL NEEDS MET, ENDORSE TO INCOMING SHIFT.
--- NOTE | 2021-09-24 07:50 | NUR ---
RELIEF OPERATOR OPENING NOTE RECEIVED PATIENT AWAKE IN BED. PATIENT IS ALERT AND ORIENTED X2-3.PATIENT IS SAMMARINESE SPEAKING. PATIENT IS ON TELE MONITOR. PATIENT HAS IV ON LEFT ARM. PATIENT HAS SPLINT ON RIGHT ARM.ALL SAFETY MEASURES IN PLACE. BED LOCKED IN LOWEST POSITION. CALL LIGHT WITHIN REACH. SIDE RAILS UP X2. WILL CONTINUE TO ASSESS THROUGHOUT SHIFT
[2021-09-24] MEDS: CEFTRIAXONE 1 G in IV D5W 50 ML IV SCH (08:40)
[2021-09-24] MEDS: ASPIRIN 81 MG TAB.CHEW PO SCH (08:40)
[2021-09-24] MEDS: METOPROLOL SUCCINATE 50 MG TAB.SR.24H PO SCH (08:52)
[2021-09-24] MEDS: LINAGLIPTIN 5 MG TABLET PO SCH (08:52)
[2021-09-24] MEDS: LOSARTAN POTASSIUM 50 MG TABLET PO SCH (08:53)
[2021-09-24] MEDS: ENOXAPARIN SODIUM 40 MG/0.4 ML DISP.SYRIN SQ SCH (08:54)
[2021-09-24] MEDS: INSULIN GLARGINE, 100 UNIT/ML CARTRIDGE SQ SCH ×2 (09:03→17:03)
--- NOTE | 2021-09-24 09:15 | NUR ---
telephone coin box collector note family at bedside and dr Peterson updated patient condition rt arm splint in place able to move fingers and skinwarm to touch
--- NOTE | 2021-09-24 10:29 | NUR ---
supervisor telephone information note pt at bedside av able to ambulate with 2 people with max assistance
[2021-09-24] MEDS: AMLODIPINE BESYLATE 2.5 MG TABLET PO SCH (11:05)
--- NOTE | 2021-09-24 11:09 | NUR ---
television news photographer note patient complaining of pain on her midline. tried flushing doesn't work. called midline nurse to place a new one. midline nurse placed a new one
[2021-09-24] MEDS ORDERED: ASPI-1169 PO (12:36)
[2021-09-24] MEDS ORDERED: Insulin Glargine,Hum SQ (12:36)
[2021-09-24] MEDS: INSULIN REGULAR, HUMAN 100 UNIT/ML 3 ML VIAL SQ PRN ×3 (12:43→23:28)
--- NOTE | 2021-09-24 12:50 | NUR ---
teletype mechanic note dr roca at bedside with order Dulcolax and aware that ortho surgery need to be done outpatient per orthopedic doctor recommendation
[2021-09-24] MEDS ORDERED: BISACODYL (5 MG) 5 MG TABLET.DR PO ONE (13:00)
[2021-09-24] MEDS: EMPAGLIFLOZIN 25 MG TABLET PO SCH (13:09)
--- NOTE | 2021-09-24 15:15 | NUR ---
spoke with senior case manager about possible discharge today. senior case manager said they would work on it. family notified.will followup
[2021-09-24] MEDS: ATORVASTATIN 40 MG TABLET PO SCH (17:07)
--- NOTE | 2021-09-24 17:17 | NUR ---
senior telecommunications consultant note up in x chair, family at bedside having dinner all needs attended
--- NOTE | 2021-09-24 17:45 | NUR ---
radiotelephone technical operator note tony case reviewer from [facility] called stated that patient will be transfer tomorrow to [facility] [phone] negative for covid , faxed io case reviewer as requested will clemente u
--- NOTE | 2021-09-24 18:37 | NUR ---
DOPE WORKER NOTE FAMILY AT BEDSIDE , PATIENT IN BED,,ALL NEEDS ATTENDED, NO SOB NOTED AT THIS TIME, RT ARM WITH SLING IN PLACE , NO C\O PAIN OR DISCOMFORT AT THIS TIME, BED IN LOWEST AND LOCKED POSITION , SAFETY MEASURE OBSERVED, CALL LIGHT WITHIN REACH
--- NOTE | 2021-09-24 19:30 | NUR ---
SECOND BAKER OPENING NOTE RECEIVED PATIENT IN BED, AWAKE. FAMILY ON BEDSIDE. ALERT AND ORIENTED X2-3, ESTONIAN SPEAKING ONLY. CURRENTLY ON ROOM AIR, TOLERATING WELL.ON TELE MONITOR SHOWING SR WITRH HR IN THE 70s. NO S/SX OF ACUTE DISTRESS NOTED AT THIS TIME. IV ACCESS IN EVETTE ML, SL.HAS SPLINT ON RIGHT ARM. ALL SAFETY MEASURES IN PLACE: BED LOCKED IN LOWEST POSITION. CALL LIGHT WITHIN REACH. SIDE RAILS UP X2. WILL CONTINUE TO MONITOR THROUGHOUT THE SHIFT
--- NOTE | 2021-09-24 19:50 | NUR ---
RN NOTE PT'S FAMILY ASKED THAT THE PT BE GIVEN STOOL SOFTENER, PT HAD NO BM IN THE LAST 4 DAYS. MESSAGED SUSAN LEE FOR AN ORDER. WILL F/U WITH FAMILY.
--- NOTE | 2021-09-24 20:25 | NUR ---
RN NOTE ADMINISTERED STOOL SOFTENER ORDERED. WILL CONTINUE TO MONITOR PT.
[2021-09-24] MEDS ORDERED: MAGNESIUM HYDROXIDE 30 ML UDC PO PRN (20:30)
[2021-09-24] MEDS: DOCUSATE SODIUM 100 MG CAPSULE PO SCH (20:30)
--- NOTE | 2021-09-25 | NUR ---
RN NOTE ACCU CHECK DONE. INSULIN ADMINISTERED PER SLIDING SCALE. PT IS STABLE, VS WNL. WILL CONTINUE TO MONITOR.
[2021-09-25 01:00] VITALS: BP 161/78
--- NOTE | 2021-09-25 02:15 | NUR ---
RN NOTE AM/PM CARE DONE. PT REMAINED STABLE, NO SIGNS OF ACUTE DISTRESS. WILL CONTINUE TO MONITOR.
[2021-09-25 05:00] VITALS: BP 150/79
--- NOTE | 2021-09-25 05:10 | NUR ---
RN NOTE PT HAD 1 BOWEL MOVEMENT. KEPT PT CLEAN AND DRY. TURNED AND REPOSITIONED.
[2021-09-25] MEDS: BLOOD SUGAR DIAGNOSTIC 1 EACH STRIP IN SCH ×4 (05:38→23:35)
[2021-09-25] MEDS: INSULIN REGULAR, HUMAN 100 UNIT/ML 3 ML VIAL SQ PRN ×3 (05:40→23:34)
--- NOTE | 2021-09-25 06:22 | NUR ---
FINANCIAL AID ADMINISTRATOR CLOSING NOTE PT REMAINED STABLE THROUGHOUT THE NIGHT. NO SOB, NO PAIN NOTED. ALL SAFETY PRECAUTIONS IN PLACE: BED LOCKED IN LOW POSITION. CALL LIGHT WITHIN REACH. WILL ENDORSE TO AM SHIFT NURSE FOR IDANIA.
[2021-09-25 06:37] LABS: BASOPHILS # (AUTO) 0.1 K/uL (0.0-0.2); BASOPHILS % (AUTO) 1.1 % (0.0-2.0); EOSINOPHILS % (AUTO) 1.5 % (0.0-6.0); HEMATOCRIT 37 % (33-45); HEMOGLOBIN 12.1 g/dL (11.5-14.8); LYMPHOCYTES # (AUTO) 2.5 K/uL (0.8-4.8); MEAN CORPUSCULAR HGB CONC 33 g/dl (31.0-36.0); MEAN CORPUSCULAR VOLUME 80 fL (82-100); MONOCYTES # (AUTO) 1.1 K/uL (0.1-1.30); MONOCYTES % (AUTO) 10.5 % (2.0-12.0); NEUTROPHILS # (AUTO) 6.9 K/uL (1.8-8.9); NEUTROPHILS % (AUTO) 63.9 % (43.0-81.0); PLATELET COUNT (AUTO) 285 K/uL (150-450); RED BLOOD CELL COUNT(AUTO) 4.67 MIL/uL (4.0-5.2); WHITE BLOOD COUNT (AUTO) 10.9 K/uL (4.3-11.0)
[2021-09-25 06:53] LABS: CALCIUM, SERUM 8.8 mg/dL (8.5-10.1); CARBON DIOXIDE 27 mmol/L (21-32); CHLORIDE 103 mmol/L (98-107); CREATININE 0.7 mg/dL (0.6-1.3); GLUCOSE 151 mg/dL (74-106); POTASSIUM 3.7 mmol/L (3.5-5.1); SODIUM SERUM 137 mmol/L (136-145); UREA NITROGEN, BLOOD 24 mg/dL (7-18)
--- NOTE | 2021-09-25 07:30 | NUR ---
RN OPENING NOTE PATIENT IS IN BED AWAKE, ALERT ORIENTED X 3. ON ROOM AIR, WITH OXYGEN SATURATION AT 96%. DENIES PAIN, BREATHING UNLABORED, AND NOT IN ANY FORM OF DISTRESS. WITH LEFT UPPER ARM MIDLINE SALINE LOCK INTACT AND PATENT, NO SIGNS OF INFILTRATION AND PHLEBITIS NOTED. BED IS LOCKED IN LOWEST POSITION, 3 SIDE RAILS UP, CALL LIGHT WITHIN REACH. WILL CONTINUE TO MONITOR THROUGHOUT SHIFT.
[2021-09-25] MEDS: INSULIN GLARGINE, 100 UNIT/ML CARTRIDGE SQ SCH ×2 (08:44→17:40)
[2021-09-25] MEDS: EMPAGLIFLOZIN 25 MG TABLET PO SCH (08:45)
[2021-09-25] MEDS: ASPIRIN 81 MG TAB.CHEW PO SCH (08:45)
[2021-09-25] MEDS: ENOXAPARIN SODIUM 40 MG/0.4 ML DISP.SYRIN SQ SCH (08:45)
[2021-09-25] MEDS: METOPROLOL SUCCINATE 50 MG TAB.SR.24H PO SCH (08:46)
[2021-09-25] MEDS: CEFTRIAXONE 1 G in IV D5W 50 ML IV SCH (08:46)
[2021-09-25] MEDS: AMLODIPINE BESYLATE 2.5 MG TABLET PO SCH (08:46)
[2021-09-25] MEDS: DOCUSATE SODIUM 100 MG CAPSULE PO SCH (08:46)
[2021-09-25] MEDS: LINAGLIPTIN 5 MG TABLET PO SCH (08:46)
[2021-09-25] MEDS: LOSARTAN POTASSIUM 50 MG TABLET PO SCH (08:46)
[2021-09-25 09:00] VITALS: BP 147/64
--- NOTE | 2021-09-25 09:00 | NUR ---
RN NOTE PATIENT HAD 1 BOWEL MOVEMENT. KEPT CLEAN AND DRY.
[2021-09-25 13:18] VITALS: BP 121/64
[2021-09-25 17:00] VITALS: BP 161/68
[2021-09-25] MEDS: ATORVASTATIN 40 MG TABLET PO SCH (17:41)
--- NOTE | 2021-09-25 18:55 | NUR ---
RN CLOSING NOTE PATIENT IS IN BED, AWAKE AND RESTING COMFORTABLY. PATIENT REMAINED STABLE THROUGHOUT SHIFT. ON ROOM AIR WITH O2 SATURATION AT 95%. IV LINE REMAINS INTACT AND PATENT. DENIES PAIN, BREATHING UNLABORED, AND NOT IN ANY FORM OF DISTRESS. BED IS LOCKED IN LOWEST POSITION, 3 SIDE RAILS UP, CALL LIGHT WITHIN REACH. WILL ENDORSE TO NAIL GALVANIZER NURSE.
[2021-09-25 20:00] VITALS: BP 164/78
--- NOTE | 2021-09-25 20:00 | NUR ---
PAYROLL ASSISTANT OPENING NOTE PATIENT IS IN BED AWAKE, ALERT ORIENTED X 3. ON ROOM AIR, WITH OXYGEN SATURATION AT 97%. DENIES PAIN, BREATHING UNLABORED, AND NOT IN ANY FORM OF DISTRESS. WITH LEFT UPPER ARM MIDLINE SALINE LOCK INTACT AND PATENT, NO SIGNS OF INFILTRATION AND PHLEBITIS NOTED.R ARM SLING . DAUGHTER AT BEDSIDE UPDATED WITH PTS CURRENT CONDITION , TURNED AND REPOSITION . ALL NEEDS ATTENDED TOO . BED IS LOCKED IN LOWEST POSITION, 3 SIDE RAILS UP, CALL LIGHT WITHIN REACH. WILL CONTINUE TO MONITOR THROUGHOUT SHIFT.
--- NOTE | 2021-09-25 23:37 | NUR ---
senior telecommunications specialist notes Blood sugar at 12mn is 119 mg/dl no coverage given per sliding scale pts on ccho diet at this time will check blood sugar again in am
[2021-09-26] VITALS: BP 160/74
[2021-09-26 04:00] VITALS: BP 160/81
[2021-09-26] MEDS: INSULIN REGULAR, HUMAN 100 UNIT/ML 3 ML VIAL SQ PRN (05:27)
[2021-09-26] MEDS: BLOOD SUGAR DIAGNOSTIC 1 EACH STRIP IN SCH ×3 (05:28→17:30)
--- NOTE | 2021-09-26 05:29 | NUR ---
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
--- NOTE | 2021-09-26 07:15 | NUR ---
td rn notes Pts remains in bed awake on r/r remains on tele monitor sr on monitor .no sob no distress noted , v/s stable.will endorse to rn day shift for continuity of care.
--- NOTE | 2021-09-26 07:30 | NUR ---
RN OPENING NOTE RECEIVED PATIENT IN BED BUT EASILY AROUSABLE TO TOUCH. PT ALERT ORIENTED X 3. ON ROOM AIR WITH OXYGEN SATURATION OF 95%. RESPIRATION UNLABORED, NO S/S RESPIRATORY DISTRESS. MIDLINE ON LEFT UPPER MIDLINE, SALINE LOCK INTACT, FLUSHING WELL. DENIES ANY PAIN OR DISCOMFORT. BED IS LOCKED IN LOWEST POSITION, 2 SIDE RAILS UP, CALL LIGHT WITHIN REACH. SAFETY AND FALL PRECAUTIONS BEING FOLLOWED. WILL CONTINUE TO MONITOR THROUGHOUT SHIFT. .
[2021-09-26 08:00] VITALS: BP 182/89
[2021-09-26] MEDS ORDERED: AMLODIPINE BESYLATE 2.5 MG TABLET PO SCH (09:00)
--- NOTE | 2021-09-26 09:30 | NUR ---
RN NOTES DUE MEDS GIVEN
[2021-09-26] MEDS: LINAGLIPTIN 5 MG TABLET PO SCH (09:42)
[2021-09-26] MEDS: ASPIRIN 81 MG TAB.CHEW PO SCH (09:42)
[2021-09-26] MEDS: DOCUSATE SODIUM 100 MG CAPSULE PO SCH (09:42)
[2021-09-26] MEDS: METOPROLOL SUCCINATE 50 MG TAB.SR.24H PO SCH (09:42)
[2021-09-26] MEDS: LOSARTAN POTASSIUM 50 MG TABLET PO SCH (09:44)
[2021-09-26] MEDS: ENOXAPARIN SODIUM 40 MG/0.4 ML DISP.SYRIN SQ SCH (09:55)
[2021-09-26] MEDS: CEFTRIAXONE 1 G in IV D5W 50 ML IV SCH (09:57)
[2021-09-26] MEDS: EMPAGLIFLOZIN 25 MG TABLET PO SCH (09:57)
[2021-09-26] MEDS: INSULIN GLARGINE, 100 UNIT/ML CARTRIDGE SQ SCH ×2 (10:00→17:35)
[2021-09-26] MEDS ORDERED: CLONIDINE HCL 0.1 MG TABLET PO PRN (10:30)
[2021-09-26 12:00] VITALS: BP 175/81
--- NOTE | 2021-09-26 14:45 | NUR ---
RN NOTES SPOKE WITH [facility], PT PCR NEGATIVE. WAITING FOR [facility] TO ARRANGE TRANSFER AND [facility]
[2021-09-26 16:00] VITALS: BP 140/71
[2021-09-26] MEDS: ATORVASTATIN 40 MG TABLET PO SCH (18:20)
--- NOTE | 2021-09-26 18:28 | NUR ---
RN NOTES SPOKE WITH JOSE RAFAEL Berumen FROM [facility], INFORMING THAT SHE SPOKE WITH MACKENZIE [facility]ULLIGAN [facility] [employer] AND THAT PATIENT WILL BE TRANSFERRED TOMORROW AND THAT THEY WILL CALL BACK AGAIN [facility].
--- NOTE | 2021-09-26 19:02 | NUR ---
RN CLOSING NOTE PATIENT IS IN BED, AWAKE AND RESTING COMFORTABLY. PATINED HAS NO S/S OF PAIN OR DISCOMFORT. IV ON LEFT UPPER MIDLINE, INTACT. ON ROOM AIR WITH O2 SATURATION AT 95%, BREATHING UNLABORED, NO S/S OF RESPIRATORY DISTRESS. BED IS LOCKED IN LOWEST POSITION, 3 SIDE RAILS UP, CALL LIGHT WITHIN REACH. WILL ENDORSE TO INCOMING NURSE
[2021-09-26 20:00] VITALS: BP 135/73
--- NOTE | 2021-09-26 22:41 | NUR ---
UR COORDINATOR OPENING NOTE RECEIVED PT IN BED, AWAKE, A&O X4, CROATIAN-SPEAKING WITH FAMILY AT BEDSIDE, CALM, COOPERATIVE. ABLE TO COMMUNICATE WITH PT USING RAYON CONER TRINH VIA MOBILE PHONE. PT ON RA WITH CURRENT O2SAT OF 100%; NO S/S OF RESP DISTRESS, NO SOB OR COUGH, NON-LABORED AND EQUAL BREATHING. ATTACHED TO EXTERNAL MONITOR, SR WITH HR OF 74. IV ACCESS ON EVETTE MIDLINE WITH RIGHT ARM ON CAST WITH A SLING. BED IN LOWEST POSITION, CALL LIGHT WITHIN REACH, SIDE RAILS UP X2. WILL CONTINUE TO MONITOR THROUGHOUT THE NIGHT.
[2021-09-27] VITALS: BP 166/46
[2021-09-27] MEDS: BLOOD SUGAR DIAGNOSTIC 1 EACH STRIP IN SCH ×4 (00:08→17:13)
--- NOTE | 2021-09-27 00:09 | NUR ---
RN Note Pt noted to have BG of 63 mg/dl; pt given 2 cups of orange juice. Will recheck BG in 30 minutes.
--- NOTE | 2021-09-27 00:53 | NUR ---
RN NOTE BG RECHECKED AND IS 100 MG/DL; WILL CONTINUE TO MONITOR
[2021-09-27 04:00] VITALS: BP 151/51
--- NOTE | 2021-09-27 07:16 | NUR ---
TOURIST HOME KEEPER CLOSING NOTE PT REMAINS IN BED, AWAKE, A&O X4, HEBREW-SPEAKING, CALM, COOPERATIVE, SLEPT WELL THROUGHOUT THE NIGHT. PT REMAINS ON RA WITH CURRENT O2SAT OF 100% THROUGHOUT THE NIGHT; NO S/S OF RESP DISTRESS, NO SOB OR COUGH, NON-LABORED AND EQUAL BREATHING. ATTACHED TO EXTERNAL MONITOR, SR WITH PVCS HR RANGING FROM 74-76. IV ACCESS ON EVETTE MIDLINE WITH RIGHT ARM ON CAST WITH A SLING. BED IN LOWEST POSITION, CALL LIGHT WITHIN REACH, SIDE RAILS UP X2. ALL DUE MEDS ADMINISTERED DURING THE NIGHT. WILL ENDORSE TO DAYSHIFT NURSE TO CONTINUE CARE.
--- NOTE | 2021-09-27 07:42 | NUR ---
RN OPENING NOTE RECEIVED PT IN BED, AWAKE, A&O X4, TURKISH-SPEAKING, CALM, COOPERATIVE. ABLE TO COMMUNICATE WITH PT USING CELL OPERATOR TRINH VIA MOBILE PHONE. PT ON RA WITH CURRENT O2SAT OF 100%; NO S/S OF RESP DISTRESS, NO SOB OR COUGH, NON-LABORED AND EQUAL BREATHING. ATTACHED TO EXTERNAL MONITOR, SR. IV ACCESS ON EVETTE MIDLINE WITH RIGHT ARM ON CAST WITH A SLING. BED IN LOWEST POSITION, CALL LIGHT WITHIN REACH, SIDE RAILS UP X2. WILL CONTINUE PLAN OF CARE AND ANTICIPATE NEEDS.
[2021-09-27 08:00] VITALS: BP 144/78
[2021-09-27] MEDS: EMPAGLIFLOZIN 25 MG TABLET PO SCH (08:24)
[2021-09-27] MEDS: ASPIRIN 81 MG TAB.CHEW PO SCH (08:24)
[2021-09-27] MEDS: LINAGLIPTIN 5 MG TABLET PO SCH (08:25)
[2021-09-27] MEDS: DOCUSATE SODIUM 100 MG CAPSULE PO SCH (08:25)
[2021-09-27] MEDS: METOPROLOL SUCCINATE 50 MG TAB.SR.24H PO SCH (08:33)
[2021-09-27] MEDS: LOSARTAN POTASSIUM 50 MG TABLET PO SCH (08:34)
[2021-09-27] MEDS: AMLODIPINE BESYLATE 2.5 MG TABLET PO SCH (08:34)
[2021-09-27] MEDS: ENOXAPARIN SODIUM 40 MG/0.4 ML DISP.SYRIN SQ SCH (08:38)
[2021-09-27] MEDS: INSULIN GLARGINE, 100 UNIT/ML CARTRIDGE SQ SCH ×2 (08:39→17:45)
[2021-09-27] MEDS: HYDROCODONE/APAP 5/325MG TABLET PO PRN (10:36)
[2021-09-27 12:00] VITALS: BP 148/78
[2021-09-27] MEDS: INSULIN REGULAR, HUMAN 100 UNIT/ML 3 ML VIAL SQ PRN (12:21)
[2021-09-27 16:00] VITALS: BP 126/74
[2021-09-27] MEDS: ATORVASTATIN 40 MG TABLET PO SCH (17:14)
--- NOTE | 2021-09-27 18:34 | NUR ---
RN CLOSING NOTE PATIENT IN BED, AWAKE, A&O X4, VIETNAMESE-SPEAKING, CALM, COOPERATIVE. ABLE TO COMMUNICATE USING FAMILY MEMBERS TO TRANSLATE. PATIENT ON ROOM AIR WITH CURRENT O2SAT OF 100%; NO S/S OF RESP DISTRESS, NO SOB OR COUGH, NON-LABORED AND EQUAL BREATHING. ATTACHED TO EXTERNAL MONITOR, READING SINUS RHYTHM. IV ACCESS ON EVETTE MIDLINE WITH RIGHT ARM ON CAST WITH A SLING. BED IN LOWEST POSITION, CALL LIGHT WITHIN REACH, SIDE RAILS UP X2. WILL ENDORSE TO NIGHTSHIFT RN FOR CONTINUATION OF CARE.
[2021-09-27 20:00] VITALS: BP 145/62
--- NOTE | 2021-09-27 20:56 | NUR ---
ANTHONY/RN DURING INITIAL SHIFT ROUND, PATIENT WAS LYING IN BED AWAKE, ALERT, ORIENTED, NO C/O PAIN, NO SIGNS OF DISTRESS NOTED, CALL LIGHT WITHIN REACH, FALL PRECAUTIONS PER PROTOCOL IMPLEMENTED, WILL MONITOR.
[2021-09-28] VITALS: BP 163/69
[2021-09-28] MEDS: DEXTROSE 50%-WATER 50 ML DISP.SYRIN IV PRN ×2 (00:25→05:33)
[2021-09-28] MEDS: BLOOD SUGAR DIAGNOSTIC 1 EACH STRIP IN SCH ×4 (00:29→17:10)
--- NOTE | 2021-09-28 00:40 | NUR ---
ANTHONY/RN ACCU CHECK BLOOD SUGAR, 44, RECHECKED, 45. PATIENT IS ASYMPTOMATIC, AWAKE AND ALERT, D50% 50 MLS IVP WAS GIVEN ORDERED. WILL CHECK AGAIN BLOOD SUGAR PER PROTOCOL WILL MONITOR.
[2021-09-28 04:00] VITALS: BP 153/69
--- NOTE | 2021-09-28 06:15 | NUR ---
REPORT GIVEN TO ST GARY KATE RN. Addendum: 09/28/21 at 1829 by GIOVANA RAMOS RN 1815 NOTES
--- NOTE | 2021-09-28 06:58 | NUR ---
ANTHONY/RN PATIENT IS AWAKE, ALERT AND ORIENTED, COMFORTABLE, NO SIGNS OF DISTRESS NOTED, CALL LIGHT IN REACH. LATEST BLOOD SUGAR 132. ALL NEEDS ATTENDED AT THIS TIME, WILL CONTINUE TO MONITOR.
--- NOTE | 2021-09-28 07:49 | NUR ---
RN OPENING NOTE RECEIVED PT IN BED, AWAKE, A&O X4, CROATIAN-SPEAKING, CALM, COOPERATIVE. PT RA WITH O2SAT OF 100%; NO S/S OF RESP DISTRESS, NO SOB OR COUGH, NON-LABORED AND EQUAL BREATHING. ATTACHED TO EXTERNAL MONITOR, SR. IV ACCESS ON EVETTE MIDLINE WITH RIGHT ARM ON CAST WITH A SLING. BED IN LOWEST POSITION, CALL LIGHT WITHIN REACH, SIDE RAILS UP X2. WILL CONTINUE PLAN OF CARE AND ANTICIPATE NEEDS.
[2021-09-28 08:00] VITALS: BP 154/76
[2021-09-28] MEDS: EMPAGLIFLOZIN 25 MG TABLET PO SCH (08:02)
[2021-09-28] MEDS: DOCUSATE SODIUM 100 MG CAPSULE PO SCH (08:02)
[2021-09-28] MEDS: ASPIRIN 81 MG TAB.CHEW PO SCH (08:03)
[2021-09-28] MEDS: METOPROLOL SUCCINATE 50 MG TAB.SR.24H PO SCH (08:04)
[2021-09-28] MEDS: LOSARTAN POTASSIUM 50 MG TABLET PO SCH (08:04)
[2021-09-28] MEDS: LINAGLIPTIN 5 MG TABLET PO SCH (08:04)
[2021-09-28] MEDS: AMLODIPINE BESYLATE 2.5 MG TABLET PO SCH (08:05)
[2021-09-28] MEDS: ENOXAPARIN SODIUM 40 MG/0.4 ML DISP.SYRIN SQ SCH (08:07)
[2021-09-28] MEDS: INSULIN GLARGINE, 100 UNIT/ML CARTRIDGE SQ SCH ×3 (08:08→17:51)
[2021-09-28] MEDS ORDERED: HYDROCHLOROTHIAZIDE 25 MG TABLET PO SCH (09:00)
--- NOTE | 2021-09-28 09:30 | NUR ---
lantus previous dose was given at 08:08am. Was discontinued at 9am with new order. Did not administer new order since previous dose was administered an hour ago.
[2021-09-28 12:00] VITALS: BP 148/66
[2021-09-28] MEDS: INSULIN REGULAR, HUMAN 100 UNIT/ML 3 ML VIAL SQ PRN (12:40)
[2021-09-28 16:00] VITALS: BP 153/69
[2021-09-28] MEDS: ATORVASTATIN 40 MG TABLET PO SCH (17:49)
--- NOTE | 2021-09-28 18:28 | NUR ---
RN CLOSING NOTE PATIENT IN BED, AWAKE, A&O X4, AMHARIC-SPEAKING, CALM, COOPERATIVE. ABLE TO COMMUNICATE USING FAMILY MEMBERS TO TRANSLATE. PATIENT ON ROOM AIR WITH CURRENT O2SAT OF 100%; NO S/S OF RESP DISTRESS, NO SOB OR COUGH, NON-LABORED AND EQUAL BREATHING. ATTACHED TO EXTERNAL MONITOR, READING SINUS RHYTHM. IV ACCESS ON EVETTE MIDLINE WITH RIGHT ARM ON CAST WITH A SLING. BED IN LOWEST POSITION, CALL LIGHT WITHIN REACH, SIDE RAILS UP X2. WILL ENDORSE TO NIGHTSHIFT RN FOR CONTINUATION OF CARE.
--- NOTE | 2021-09-28 19:39 | NUR ---
LACE STRIPPER OPENING NOTE RECEIVED PT IN BED, AWAKE, A&O X4, KINYARWANDA-SPEAKING. ON RA WITH O2SAT OF 100%; NO S/S OF RESP DISTRESS, NO SOB OR COUGH, NON-LABORED AND EQUAL BREATHING. ATTACHED TO EXTERNAL MONITOR, SR. IV ACCESS ON EVETTE MIDLINE WITH RIGHT ARM ON CAST WITH A SLING. BED IN LOWEST POSITION, FAMILY AT BEDSIDE. CALL LIGHT WITHIN REACH, SIDE RAILS UP X2. [facility] WILL CONTINUE PLAN OF CARE AND ANTICIPATE NEEDS.
--- NOTE | 2021-09-28 19:50 | NUR ---
RN NOTE D/C INSTRUCTIONS GIVEN TO PATIENT AND FAM MEMBER. V/S TAKEN AND RECORDED, A/O X4. FAMILY MEMBERS AT BEDSIDE. PATIENT PICKED UP BY [facility] TRANSPORTED VIA GURNEY ACCOMPANIED BY 2 STAFF Burke SHABAZZ.
== END 2021-09-28 20:03 | DRG 65 ==
LOC: ER 09:39 → TELE1 23:33
PROVIDERS: ADMIT Internal Medicine; ATTEND Internal Medicine
PROC: 05H633Z Insertion of Infusion Device into Left Subclavian Vein, Percutaneous Approach (ICD-10-PCS; principal; 2021-09-23)
PROC: B547ZZA Ultrasonography of Left Subclavian Vein, Guidance (ICD-10-PCS; 2021-09-23)
PROC: 05HA33Z Insertion of Infusion Device into Left Brachial Vein, Percutaneous Approach (ICD-10-PCS; 2021-09-24)
PROC: B54NZZA Ultrasonography of Left Upper Extremity Veins, Guidance (ICD-10-PCS; 2021-09-24)
DX: I63.9 Cerebral infarction, unspecified (principal); G81.91 Hemiplegia, unspecified affecting right dominant side; N39.0 Urinary tract infection, site not specified; S42.411A Displaced simple supracondylar fracture without intercondylar fracture of right humerus, initial encounter for closed fracture; E11.9 Type 2 diabetes mellitus without complications; E04.2 Nontoxic multinodular goiter; R29.707 NIHSS score 7; W18.30XA Fall on same level, unspecified, initial encounter; Y92.002 Bathroom of unspecified non-institutional (private) residence as the place of occurrence of the external cause; E11.65 Type 2 diabetes mellitus with hyperglycemia; E83.42 Hypomagnesemia; E87.6 Hypokalemia; I10 Essential (primary) hypertension; Z79.4 Long term (current) use of insulin; Z20.822 Contact with and (suspected) exposure to COVID-19; Z86.73 Personal history of transient ischemic attack (TIA), and cerebral infarction without residual deficits; E78.5 Hyperlipidemia, unspecified; Z79.84 Long term (current) use of oral hypoglycemic drugs; R29.810 Facial weakness; R47.81 Slurred speech; R91.1 Solitary pulmonary nodule
CPT/HCPCS: 36410; 36415; 70450-TC; 70496-TC; 70498-TC; 70551-TC; 71045-TC; 73030-TC; 73070-TC; 73080-TC; 73110; 73200-TC; 80048-TC; 80061-TC; 80076-TC; 81001; 82962-TC; 83735-TC; 84443-TC; 84484-TC; 85025-TC; 85730-TC; 86850-TC; 87081-TC; 92526; 92611-TC; 93307-TC; 97110-TC; 97116-TC; 97530-TC; C9803; G0378; J0696; J1650; J1815; J3475; J7050; J7060; Q9967; U0003

== ENCOUNTER 2021-12-16 15:10 | Inpatient (IN) | payer MEDICARE, OTHER ==
[~2021-12-16] VITALS: Ht 157.5 cm; Wt 54.9 kg
[~2021-12-16 15:10] MED LIST changes: +AMLO5TAB4 PO; +ASPI-1169 PO; +CHLO25TA2 PO; +DICL100G26 TP; -HYDR12.55 PO; +ICOS1CAP PO; +INSU300I SQ; +Insulin Glargine,Hum SQ; +LIRA0.6P2 SQ; +MYRBETRIQ PO; +TRAZ-182 PO
--- NOTE | 2021-12-16 15:23 | NUR ---
TO ER BED 2, BIBDAUGHTER C/O RIGHT ANKLE WOUND NOTED BY DAUGHTER, AAOX3, BREATHING EVEN AND NON LABORED, CONNECTED TO MONITOR, AWAITING MD CAO
--- NOTE | 2021-12-16 15:43 | NUR ---
[facility] [phone]
--- NOTE | 2021-12-16 16:35 | NUR ---
DRIVEMATIC MACHINE OPERATOR AT BEDSIDE FOR XRAY
--- NOTE | 2021-12-16 16:56 | NUR ---
MUD TANK OPERATOR AT BEDSIDE FOR BLOOD DRAW
[2021-12-16 17:36] LABS: BASOPHILS # (AUTO) 0.1 K/uL (0.0-0.2); BASOPHILS % (AUTO) 0.8 % (0.0-2.0); EOSINOPHILS % (AUTO) 2.4 % (0.0-6.0); HEMATOCRIT 37 % (33-45); HEMOGLOBIN 11.8 g/dL (11.5-14.8); LYMPHOCYTES % (AUTO) 20.8 % (20.0-44.0); MEAN CORPUSCULAR HGB CONC 32 g/dl (31.0-36.0); MEAN CORPUSCULAR VOLUME 79 fL (82-100); MONOCYTES # (AUTO) 0.6 K/uL (0.1-1.30); MONOCYTES % (AUTO) 6.2 % (2.0-12.0); NEUTROPHILS # (AUTO) 6.8 K/uL (1.8-8.9); NEUTROPHILS % (AUTO) 69.8 % (43.0-81.0); PLATELET COUNT (AUTO) 289 K/uL (150-450); RED BLOOD CELL COUNT(AUTO) 4.66 MIL/uL (4.0-5.2); WHITE BLOOD COUNT (AUTO) 9.7 K/uL (4.3-11.0)
[2021-12-16 17:45] LABS: CREATININE 0.7 mg/dL (0.6-1.3); POTASSIUM 4.1 mmol/L (3.5-5.1)
--- NOTE | 2021-12-16 17:49 | NUR ---
COVID SWAB DONE AND SENT TO LAB
[2021-12-16] MEDS ORDERED: INSULIN REGULAR, HUMAN 100 UNIT/ML 10 ML VIAL ONE (18:57)
[2021-12-16] MEDS ORDERED: IV NS 0.9% 1,000 ML BAG IV ONE (19:00)
[2021-12-16] MEDS ORDERED: CEFTRIAXONE 1 G in IV D5W 50 ML IV ONE (19:00)
[2021-12-16] MEDS ORDERED: INSULIN REGULAR, HUMAN 100 UNIT/ML 10 ML VIAL SQ ONE (19:00)
--- NOTE | 2021-12-16 20:07 | NUR ---
RECEIVED REPORT FROM EMILIA MANRIQUEZ. PATIENT CAME HERE EARLIER WITH CC OF RIGHT ANKLE WOUND. AAOX3. PATIENT IS ATTACHED TO TELEPHONE SEX WORKER. PATIENT HAS PERIPHERAL LINE ON LEFT WRIST G22 WITH ONGOING IV INFUSION OF NS FLUID. PATIENT WILL BE ADMITTED TO HOSPITAL FOR RIGHT ULCER OF RIGHT ANKLE, HYPERGLYCEMIA, STROKE. WAITING FOR ROOM AVAILABILITY. POSITIONED COMFORTABLY. VITALS CHECKED.
[2021-12-16] MEDS ORDERED: Medication Not On Formulary EA (Icosapent Ethyl (Vascepa) 1 GM) PO SCH (22:00)
[2021-12-16] MEDS ORDERED: INSULIN REGULAR, HUMAN 100 UNIT/ML 3 ML VIAL SQ PRN (22:00)
[2021-12-16] MEDS ORDERED: METFORMIN 850 MG TABLET PO ONE (22:00)
[2021-12-16] MEDS ORDERED: TRAZODONE 50 MG TABLET PO PRN (22:00)
[2021-12-16] MEDS ORDERED: DEXTROSE 50%-WATER 50 ML DISP.SYRIN IV PRN (22:00)
[2021-12-16] MEDS ORDERED: *INSULIN REGULAR(HUMULIN R)HUM 100 UNIT/ML VIAL SQ PRN (22:00)
--- NOTE | 2021-12-16 22:33 | NUR ---
PERINEAL CARE DONE. NEED IS ATTENDED
[2021-12-16] MEDS: BLOOD SUGAR DIAGNOSTIC 1 EACH STRIP VI SCH (23:19)
[2021-12-16] MEDS ORDERED: CEFTRIAXONE 1GM BAG (ER ONLY) 50 ML IV ONE (23:23)
[2021-12-16] MEDS ORDERED: ATORVASTATIN 40 MG TABLET ONE (23:23)
[2021-12-16] MEDS ORDERED: METFORMIN 500 MG TABLET ONE (23:24)
[2021-12-16] MEDS: CEFTRIAXONE 1 G in IV D5W 50 ML IV SCH (23:36)
[2021-12-16] MEDS: ATORVASTATIN 40 MG TABLET PO SCH (23:37)
--- NOTE | 2021-12-17 03:32 | NUR ---
NEEDS ATTENDED. REPOSITIONED PATIENT. PROVIDED MORE WARM BLANKETS
[2021-12-17 05:21] LABS: BASOPHILS # (AUTO) 0.1 K/uL (0.0-0.2); BASOPHILS % (AUTO) 0.7 % (0.0-2.0); EOSINOPHILS % (AUTO) 1.6 % (0.0-6.0); HEMATOCRIT 36 % (33-45); HEMOGLOBIN 11.5 g/dL (11.5-14.8); LYMPHOCYTES % (AUTO) 16.8 % (20.0-44.0); MEAN CORPUSCULAR HGB CONC 32 g/dl (31.0-36.0); MEAN CORPUSCULAR VOLUME 79 fL (82-100); MONOCYTES # (AUTO) 0.7 K/uL (0.1-1.30); MONOCYTES % (AUTO) 6.1 % (2.0-12.0); NEUTROPHILS # (AUTO) 8.8 K/uL (1.8-8.9); NEUTROPHILS % (AUTO) 74.8 % (43.0-81.0); PLATELET COUNT (AUTO) 321 K/uL (150-450); RED BLOOD CELL COUNT(AUTO) 4.56 MIL/uL (4.0-5.2); WHITE BLOOD COUNT (AUTO) 11.7 K/uL (4.3-11.0)
[2021-12-17 05:43] LABS: CREATININE 0.7 mg/dL (0.6-1.3); MAGNESIUM 1.5 mg/dL (1.8-2.4); PHOSPHORUS 3.3 mg/dL (2.5-4.9); POTASSIUM 3.5 mmol/L (3.5-5.1)
[2021-12-17] MEDS ORDERED: METFORMIN 500 MG TABLET PO ONE (06:49)
--- NOTE | 2021-12-17 07:20 | NUR ---
RECEIVED PT FROM JO-ANN NIETO PT AWAKE CONFUSED RESPIRATION SPONT AND EASY MONINING
--- NOTE | 2021-12-17 07:25 | NUR ---
PRENIALE AREA REDNESS AND EXCORATION WITH SKIN NATY DOWN AND RT ANKLE DEEP WOUND
[2021-12-17] MEDS: BLOOD SUGAR DIAGNOSTIC 1 EACH STRIP VI SCH (07:36)
--- NOTE | 2021-12-17 07:53 | NUR ---
REPORT GIVEN TO JALEN FOR IDANIA
--- NOTE | 2021-12-17 08:05 | NUR ---
WOUND CARE CONSULT: PT PRESENTS WITH RT ANKLE ULCER AND RASH TO BUTTOCKS WITH SACRAL SCARRING/DIMPLE NOTED, PRESENT ON ADMISSION. DR WALL NOTIFIED OF DPM CONSULT REQUEST. RECOMMENDATIONS MADE FOR WOUND CARE AND SKIN PROTECTION. DISCUSSED WITH NURSING STAFF. MD IN AGREEMENT WITH PLAN OF CARE.
--- NOTE | 2021-12-17 08:19 | NUR ---
PT TRANSFERRED TO [facility] FLOOR IN STABLE CONDITION.
[2021-12-17] MEDS ORDERED: Z GUARD REMEDY 4 OZ OINT TP PRN (08:30)
[2021-12-17] MEDS ORDERED: Medication Not On Formulary EA (Chlorthalidone 25 MG) PO SCH (09:00)
[2021-12-17] MEDS ORDERED: Medication Not On Formulary EA ([Myrbetriq] 25 MG) PO SCH (09:00)
[2021-12-17] MEDS ORDERED: DEXTROSE 50%-WATER 50 ML DISP.SYRIN IV PRN (09:30)
[2021-12-17] MEDS: ASPIRIN 81 MG TAB.CHEW PO SCH (10:11)
[2021-12-17] MEDS: LOSARTAN POTASSIUM 50 MG TABLET PO SCH (10:12)
[2021-12-17] MEDS: AMLODIPINE BESYLATE 5 MG TABLET PO SCH (10:13)
[2021-12-17] MEDS: METOPROLOL SUCCINATE 50 MG TAB.SR.24H PO SCH (10:14)
[2021-12-17] MEDS: LINAGLIPTIN 5 MG TABLET PO SCH (10:14)
[2021-12-17] MEDS: CLOTRIMAZOLE 1% 15 GM TUBE TP SCH ×2 (10:15→18:09)
[2021-12-17] MEDS: Z GUARD REMEDY 4 OZ OINT TP SCH (10:15)
[2021-12-17] MEDS: BLOOD SUGAR DIAGNOSTIC 1 EACH STRIP IN SCH ×3 (11:53→21:18)
[2021-12-17] MEDS: Magnesium 1GM/D5W 100ML PREMIX 100 ML IV SCH ×2 (12:07→14:26)
[2021-12-17] MEDS: IV NS 0.9% 1,000 ML IV PRN (12:08)
[2021-12-17] MEDS: INSULIN REGULAR, HUMAN 100 UNIT/ML 3 ML VIAL SQ PRN ×2 (13:31→17:56)
--- NOTE | 2021-12-17 17:00 | NUR ---
SS CONSULT RECEIVED FOR FROM HOME WITH WOUND AND RASH. sw WILL FOLLOW UP AT A LATER TIME.
[2021-12-17] MEDS: ATORVASTATIN 40 MG TABLET PO SCH (18:06)
--- NOTE | 2021-12-17 19:41 | NUR ---
MS PSYCHOLOGY CLINICIAN NOTES: PT RECEIVED FROM ER VIA [employer]. REPORT RECEIVED FROM [place] ER STAFF. PT VITALS WNL AT ADMISSION: BP- 139/68, HR- 79, RR- 18, TEMP- 97.9, O2 SAT - 98% ON RA. PT IS MAINLY CZECH SPEAKING WITH SOME JAMAICAN, A/OX1-2, ABLE TO RESPOND TO NAME AND FOLLOW SIMPLE COMMANDS. IV ACCESS AT R HAND # 22 RUNNING NS @ 75ML/HR. WOUND NOTED AT R ANKLE, SACRAL REDNESS NOTED. WOUNDS CLEANED AND DRESSED; WOUND CONSULT ORDERED PER MD. PT ORIENTED TO UNIT AND STAFF, MADE COMFORTABLE CLEAN AND DRY. SAFETY MEASURES IN PLACE, BED LOCKED AT LOWEST POSITION; CALL LIGHT AND TABLE WITHIN REACH. RN WILL CONTINUE PLAN OF CARE DURING SHIFT.
--- NOTE | 2021-12-17 19:53 | NUR ---
MS RN CLOSING NOTES: PT ASLEEP, EASILY ROUSED. PT IS MAINLY KAZAKH SPEAKING WITH SOME SINHALA, A/OX1-2, ABLE TO RESPOND TO NAME AND FOLLOW SIMPLE COMMANDS. ON RA WITH NO S/S OF SOB AND ACUTE DISTRESS. IV ACCESS AT R HAND # 22 RUNNING NS @ 75ML/HR. WOUND CARE DONE PER MD ORDER, ALL MEDS GIVEN. KEPT PT CLEAN, DRY AND COMFORTABLE. SAFETY MEASURES IN PLACE, BED LOCKED AT LOWEST POSITION; SIDE RAILS UP X4; CALL LIGHT AND TABLE WITHIN REACH. RN ENDORSED TO PM STAFF.
--- NOTE | 2021-12-17 19:55 | NUR ---
RECEIVED PATIENT IN BED ALERT EYE CONTACT PRESENT NOTED SHE FALLS TO THE RIGHT IN BED HX CVA RIGHT SIDE HEMIPLEGIA CALL LIGHT NEAR LEFT HAND BED ALARM ON
[2021-12-17 20:00] VITALS: BP 165/67
[2021-12-17] MEDS: CEFTRIAXONE 1 G in IV D5W 50 ML IV SCH (20:52)
[2021-12-17] MEDS: *INSULIN REGULAR(HUMULIN R)HUM 100 UNIT/ML VIAL SQ PRN (21:31)
[2021-12-18] MEDS: ACETAMINOPHEN 325 MG TABLET PO PRN ×2 (01:16→17:01)
[2021-12-18] MEDS: ONDANSETRON HCL/PF 4 MG/2 ML VIAL IVP PRN ×2 (01:16→02:10)
[2021-12-18] MEDS: IV NS 0.9% 1,000 ML IV PRN ×2 (03:32→17:19)
--- NOTE | 2021-12-18 04:30 | NUR ---
CLOSING NOTES: ALERT AND ORIENTATED X2 SWEDISH SPEAKING ACCIDENTLY SHE PULLED HER IV OUT RESTARTED LEFT F/A 22 G CLEANED AND REPOSITIONED ZINC CREAM APPLIED TO BUTTUCKS
[2021-12-18] MEDS: BLOOD SUGAR DIAGNOSTIC 1 EACH STRIP IN SCH ×4 (06:12→21:51)
[2021-12-18] MEDS: INSULIN REGULAR, HUMAN 100 UNIT/ML 3 ML VIAL SQ PRN ×3 (06:17→18:03)
[2021-12-18 06:27] LABS: BASOPHILS # (AUTO) 0.1 K/uL (0.0-0.2); BASOPHILS % (AUTO) 0.6 % (0.0-2.0); EOSINOPHILS % (AUTO) 1.6 % (0.0-6.0); HEMATOCRIT 36 % (33-45); HEMOGLOBIN 11.4 g/dL (11.5-14.8); LYMPHOCYTES # (AUTO) 2.2 K/uL (0.8-4.8); LYMPHOCYTES % (AUTO) 20.5 % (20.0-44.0); MEAN CORPUSCULAR HGB CONC 32 g/dl (31.0-36.0); MEAN CORPUSCULAR VOLUME 79 fL (82-100); MONOCYTES # (AUTO) 0.7 K/uL (0.1-1.30); MONOCYTES % (AUTO) 6.5 % (2.0-12.0); NEUTROPHILS # (AUTO) 7.5 K/uL (1.8-8.9); NEUTROPHILS % (AUTO) 70.8 % (43.0-81.0); PLATELET COUNT (AUTO) 301 K/uL (150-450); RED BLOOD CELL COUNT(AUTO) 4.54 MIL/uL (4.0-5.2); WHITE BLOOD COUNT (AUTO) 10.6 K/uL (4.3-11.0)
[2021-12-18 07:03] LABS: CALCIUM, SERUM 9.1 mg/dL (8.5-10.1); CREATININE 0.6 mg/dL (0.6-1.3); MAGNESIUM 1.8 mg/dL (1.8-2.4); POTASSIUM 3.9 mmol/L (3.5-5.1)
--- NOTE | 2021-12-18 07:51 | NUR ---
MS RN OPENING NOTES: RECEIVED PATIENT ON BED AWAKE ,VERBALLY RESPONSIVE , PT IS MAINLY DIVEHI SPEAKING WITH SOME ST HELENIAN, A/OX1-2, . IV ACCESS AT R HAND # 22 RUNNING NS @ 75ML/HR. NO SOB DISTRESS NOTED AT THIS TIME , NO C/O OF PAIN AND DISCOMFORT , MADE COMFORTABLE TO BED , CLEAN AND DRY. SAFETY MEASURES IN PLACE, BED LOCKED AT LOWEST POSITION; CALL LIGHT AND TABLE WITHIN REACH. WILL CONTINUE TO MONITOR .
[2021-12-18 08:00] VITALS: BP 161/72
[2021-12-18] MEDS: LINAGLIPTIN 5 MG TABLET PO SCH (08:26)
[2021-12-18] MEDS: METOPROLOL SUCCINATE 50 MG TAB.SR.24H PO SCH (08:26)
[2021-12-18] MEDS: ASPIRIN 81 MG TAB.CHEW PO SCH (08:26)
[2021-12-18] MEDS: LOSARTAN POTASSIUM 50 MG TABLET PO SCH (08:27)
[2021-12-18] MEDS: AMLODIPINE BESYLATE 5 MG TABLET PO SCH (08:27)
[2021-12-18] MEDS: CLOTRIMAZOLE 1% 15 GM TUBE TP SCH ×2 (09:08→17:55)
[2021-12-18] MEDS: Z GUARD REMEDY 4 OZ OINT TP SCH (09:09)
--- NOTE | 2021-12-18 14:05 | NUR ---
RN NOTES DNP GREGORIO ROSA INFORMED REGARDING THE VTE SCORE OF 3 AND MADE AWARE IF SHE CAN ORDER VTE PROPHYLAXIS AMD WAITING FOR NEW ORDER
--- NOTE | 2021-12-18 14:09 | NUR ---
RN NOTES WITH NEW ORDER OF DVT PUMP MECHANICAL PROPHYLAXIS , ORDER NOTED AND CARRIED OUT
[2021-12-18 16:00] VITALS: BP 161/70
[2021-12-18] MEDS: ATORVASTATIN 40 MG TABLET PO SCH (17:01)
[2021-12-18] MEDS: PROSOURCE / PROSTAT (PYXIS) 30 ML UDC GT SCH (17:55)
--- NOTE | 2021-12-18 18:27 | NUR ---
MS RN CLOSING NOTES: PATIENT ON BED AWAKE ,VERBALLY RESPONSIVE , PT IS MAINLY ST HELENIAN SPEAKING WITH SOME MACANESE, A/OX1-2, . IV ACCESS AT R HAND # 22 RUNNING NS @ 75ML/HR. NO SOB DISTRESS NOTED AT THIS TIME , C/O OF PAIN AND DISCOMFORT ON RIGHT UPPER ARM AND TYLENOL WAS GIVEN AND WITH HELP , ALL DUE MEDS GIVEN ORDERED , DRESSING ON THE RIGHT ANKLE WAS CHANGED , BLOOD SUGAR WAS CHECKED AND INSULIN GIVEN ORDERED , NO SYMPTOMS OF HYPERGLYCEMIA NOTED , MADE COMFORTABLE TO BED , CLEAN AND DRY. SAFETY MEASURES IN PLACE, BED LOCKED AT LOWEST POSITION; CALL LIGHT AND TABLE WITHIN REACH. WILL ENDORSED TO NEXT SHIFT .
[2021-12-18] MEDS ORDERED: MORPHINE SULFATE INJ 2 MG/ML DISP.SYRIN IV PRN (19:00)
--- NOTE | 2021-12-18 19:20 | NUR ---
RN OPENING NOTE PATIENT IN BED, AWAKE. FAMILY AT BEDSIDE. PATIENT IS ABLE TO MAKE NEEDS KNOWN. PRIMARILY GUYANESE SPEAKER. PATIENT IS ON RA, TOLERATING WELL. BREATHING EVEN AND UNLABORED. PATIENT NOT IN ANY PAIN, SLING ON ON THE R ARM. PATIENT HAS A L FA 22G PATENT AND INTACT, INFUSING NS AT 75 ML/HR. NOT IN ANY APPARENT DISTRESS. SAFETY MEASURES IN PLACE: BED LOCKED AND IN LOWEST POSITION, CALL LIGHT WITHIN REACH, SIDE RAILS UP. WILL MONITOR PATIENT CLOSELY.
[2021-12-18 20:00] VITALS: BP 136/67
--- NOTE | 2021-12-18 20:00 | NUR ---
PER ORTHO ALYSIA- PATIENT'S FX SEEMS TO BE AN OLD FX AND LOOKS HEALED. PATIENT CAN FOLLOW UP WITH DR. WALKER OUTPATIENT AT THEIR OFFICE.
[2021-12-18] MEDS: CEFTRIAXONE 1 G in IV D5W 50 ML IV SCH (21:51)
[2021-12-18] MEDS: *INSULIN REGULAR(HUMULIN R)HUM 100 UNIT/ML VIAL SQ PRN (21:54)
[2021-12-19] MEDS: IV NS 0.9% 1,000 ML IV PRN (05:28)
[2021-12-19] MEDS: INSULIN REGULAR, HUMAN 100 UNIT/ML 3 ML VIAL SQ PRN ×2 (06:19→12:33)
[2021-12-19] MEDS: BLOOD SUGAR DIAGNOSTIC 1 EACH STRIP IN SCH ×2 (07:10→11:39)
--- NOTE | 2021-12-19 07:10 | NUR ---
RN CLOSING NOTE PATIENT IN BED, EYES CLOSED. PATIENT IS ABLE TO MAKE NEEDS KNOWN. PRIMARILY UKRAINIAN SPEAKER. PATIENT IS ON RA, TOLERATING WELL. BREATHING EVEN AND UNLABORED. PATIENT NOT IN ANY PAIN, SLING ON ON THE R ARM. PATIENT HAS A L FA 22G PATENT AND INTACT, INFUSING NS AT 75 ML/HR. NOT IN ANY APPARENT DISTRESS. SAFETY MEASURES IN PLACE: BED LOCKED AND IN LOWEST POSITION, CALL LIGHT WITHIN REACH, SIDE RAILS UP. ALL NEEDS MET AND ATTENDED. ALL ORDERS CARRIED OUT. WILL ENDORSE TO DAY SHIFT NURSE FOR IDANIA.
--- NOTE | 2021-12-19 07:29 | NUR ---
MS RN OPENING NOTES: RECEIVED PATIENT ON BED ASLEEP BUT AROUSABLE ,VERBALLY RESPONSIVE , PT IS MAINLY ROMANSH SPEAKING WITH SOME SAMOAN, A/OX1-2, . IV ACCESS AT R HAND # 22 RUNNING NS @ 75ML/HR. NO SOB DISTRESS NOTED AT THIS TIME , NO C/O OF PAIN AND DISCOMFORT , MADE COMFORTABLE TO BED , CLEAN AND DRY. SAFETY MEASURES IN PLACE, BED LOCKED AT LOWEST POSITION; CALL LIGHT AND TABLE WITHIN REACH. WILL CONTINUE TO MONITOR .
[2021-12-19 08:00] VITALS: BP 154/69
[2021-12-19] MEDS: ASPIRIN 81 MG TAB.CHEW PO SCH (08:35)
[2021-12-19] MEDS: AMLODIPINE BESYLATE 5 MG TABLET PO SCH (08:36)
[2021-12-19] MEDS: LOSARTAN POTASSIUM 50 MG TABLET PO SCH (08:36)
[2021-12-19 08:37] VITALS: BP 154/69
[2021-12-19] MEDS: LINAGLIPTIN 5 MG TABLET PO SCH (08:37)
[2021-12-19] MEDS: METOPROLOL SUCCINATE 50 MG TAB.SR.24H PO SCH (08:37)
[2021-12-19] MEDS: PROSOURCE / PROSTAT (PYXIS) 30 ML UDC GT SCH (08:39)
[2021-12-19] MEDS: CLOTRIMAZOLE 1% 15 GM TUBE TP SCH (08:39)
[2021-12-19] MEDS: Z GUARD REMEDY 4 OZ OINT TP SCH (08:40)
--- NOTE | 2021-12-19 12:23 | NUR ---
RN NOTES DVT PUMP WAS CANCELLED RELATED TO PATIENT HAS RIGHT ANKLE LEG WOUND
[2021-12-19] MEDS ORDERED: CEPH500C2 PO (13:09)
--- NOTE | 2021-12-19 15:20 | NUR ---
CORN DETASSELER NOTES: PATIENT WAS SEEN WITH DR LEE AND WITH ORDER FOR DISCHARGE TODAY , ALL DUE MEDS GIVEN ORDERED ,ALL DISCHARGED PAPERS WHERE PREPARED AND DISCHARGE INSTRUCTION PROVIDED TO THE FAMILY MEMBER REGARDING WOUND MANAGEMENT , SAFETY PRECAUTIONS ON THE RIGHT UPPER ARM WITH THE FRACTURE AND FOLLOW UP WITH PCP AND ALSO TO MONITOR FOR ANY CHANGE OF CONDITION AND WHEN TO CALL 911 IN CASE OF EMERGENCY , . IV ACCESS AT R HAND WAS REMOVED . NO SOB DISTRESS NOTED AT THIS TIME , NO C/O OF PAIN AND DISCOMFORT ,WHEN PATIENT WAS DISCHARGED AND FAMILY PROVIDED TRANSPORTATION VIA PRIVATE CAR, ASSISTED PATIENT TO THE LOBBY TOGETHER WITH THE FAMILY .
== END 2021-12-19 14:50 | disposition home or self-care (01) | DRG 638 ==
LOC: ER 15:22 → TRANSITION 23:04 → MED 12-17 07:55
PROVIDERS: ADMIT Nurse Practitioner Acute Care; ATTEND Nurse Practitioner Acute Care
DX: E11.621 Type 2 diabetes mellitus with foot ulcer (principal); D68.59 Other primary thrombophilia; I69.351 Hemiplegia and hemiparesis following cerebral infarction affecting right dominant side; M84.421A Pathological fracture, right humerus, initial encounter for fracture; L97.319 Non-pressure chronic ulcer of right ankle with unspecified severity; E11.65 Type 2 diabetes mellitus with hyperglycemia; S91.001A Unspecified open wound, right ankle, initial encounter; E11.40 Type 2 diabetes mellitus with diabetic neuropathy, unspecified; I10 Essential (primary) hypertension; Z20.822 Contact with and (suspected) exposure to COVID-19; E78.5 Hyperlipidemia, unspecified; Z74.09 Other reduced mobility; M62.50 Muscle wasting and atrophy, not elsewhere classified, unspecified site; Z79.4 Long term (current) use of insulin
CPT/HCPCS: 36415; 73060-TC; 73090-TC; 73610-TC; 80048-TC; 80061-TC; 82962-TC; 83735-TC; 84100-TC; 85025-TC; 87081-TC; A6403; C9803; G0378; J0696; J1815; J2405; J3475; J7030; J7060